=== PATIENT | male | born 1970 | race African-American/Black ===

== ENCOUNTER 2024-05-08 16:39 | Inpatient (IN) | payer OTHER ==
[~2024-05-08] VITALS: Ht 170.2 cm; Wt 103.4 kg
[~2024-05-08 16:39] MED LIST: ALBU0.084 INH; ALBU108A5 INH; AMLO1TAB23 PO; ASPI-325 PO; CEFP200T15 PO; CHOL50007 PO; FLUT500M2 INH; HYDR100T10 PO; LOSA-535 PO; METO-289 PO; SEMA1INJ2 SC; SPIR25TA8 PO; TIOT17SP INH
[2024-05-08] MEDS: IPRATROPIUM BROM 0.5 MG/2.5ML INH SOL NEB ONE ×2 (16:59)
[2024-05-08] MEDS: ALBUTEROL SULF 2.5 MG/0.5ML(0.5%) NEB SOLN NEB ONE ×2 (16:59)
[2024-05-08] MEDS: methylPREDNISolone SOD SUCC 125 MG/2 ML VL IV ONE ×2 (16:59→17:00)
[2024-05-08] MEDS: FUROSEMIDE 100 MG/10ML VIAL IV ONE ×2 (16:59)
[2024-05-08] MEDS: NITROGLYCERIN 0.4 MG SL TAB SL ONE (17:02)
--- NOTE | 2024-05-08 17:12 | DVH ---
CHEST RADIOGRAPH Indication: resp distress Technique: Single frontal view of the chest was obtained Comparison: None FINDINGS: Lines and Tubes: None Lungs: Bibasilar airspace disease Pleura: No effusion. No pneumothorax. Cardiomediastinal contours: Cardiomegaly Bones: No acute osseous abnormality. IMPRESSION: 1. Findings may be secondary to pneumonia or congestive failure HS:Y
--- NOTE | 2024-05-08 17:18 | ED.PDOC ---
SOB-HPI HPI Comments HPI: 54y M who presents to the ED via EMS for chief complaint of shortness of breath. - Per EMS, pt was [place] and called EMS after getting short of breath - EMS states on arrival, pt was already on 5 L via nc upon arrival and and noted to be in respiratory distress - pt vitals were checked and pt was noted to have 02 sat of 78% and placed on CPAP with duo- neb treatment prior to arrival to the ED - pt in the ED, now at 88% on CPAP with noted BP of 179/117, temp of 99.0F, heart rate of 117 and RR of 26 -pt noted to be in respiratory distress and noted to be speaking in 1 word sentences when answering questions - pt has noted history of CHF but is currently not on Lasix and states he is currently on antibiotics for an recent pneumonia infection. Patient was admitted and discharged recently from the hospital in [facility] for pneumonia COPD exacerbation. Is a question of whether his oxygen machine is actually functional. Patient denies any chest pain. Past Medical History: COPD, CHF, HTN, DM, Past Surgical History: denies medications: norco allergies: nkda Social History: denies tobacco use, denies ETOH use, denies drug use Vale: Patient was recently released from [facility] for COPD exacerbation and pneumonia. He was prescribed oral antibiotics. Patient states he has been compliant with his medications. He is not on any diuretics. Patient has history of CHF however. Denies any use of drugs. Denies any allergies. HPI: Poor Historian. REVIEW OF SYSTEMS: CONSTITUTIONAL: Denies acute: fever, diaphoresis, chills, HEAD: Denies acute: headache, photophobia Eyes: Denies acute: Double vision, vision loss, eye pain, eye discharge. EARS: Denies acute: tinnitus, hearing loss, ear discharge, ear pain, THROAT: Denies acute: sore throat, swelling, difficulty swallowing , pain with swallowing, change in voice. NECK: Denies acute: neck pain, neck swelling, stiff neck. HEART: Denies acute : chest pain, palpitations, LUNGS: Denies acute: wheezing, cough, hemoptysis ABDOMEN: Denies acute: abdominal pain, Nausea, Vomiting, diarrhea, melena , hematemesis, hematochezia SKIN: Denies acute: rash, redness, lesions, itchiness. EXTREMITIES: Denies acute: calf pain, numbness, tingling, weakness, denies pain in extremity. Denies acute: Low back pain. Neuro: Denies acute: focal neurological deficit, motor or sensory focal neurological deficit, tremors, seizure like activity, confusion, dizziness, change in mental status, loss of bowel or bladder function, cauda equina like symptoms. : Denies acute: dysuria, hematuria, flank pain, increase in urinary frequency. PSYCH: Denies acute: hallucination, suicidal ideation, homicidal ideation. PHYSICAL EXAM: General: Ycio-sv-bearynlx acute distress, awake and alert. Head: normocephalic, atraumatic. Neck: supple, trachea is midline, no swelling. Throat: Normal phonation. Eyes:, no erythema, no purulent discharge, no proptosis, no icterus. Heart: regular tachy, no significant murmur appreciated. Lungs: Gece-ft-obkcgyqk apparent respiratory distress, Able to speak in full sentences. No wheezing, no rhonchi, no crackles. No stridors Clear to auscultation bilaterally. Abdomen: non tender to palpation, non distended, soft, no guarding, no rebound, + bowel sounds. Neuro: Awake, Alert, oriented to name, self, situation, follows commands GCS=15. Speech is normal. Skin: no petechia, no purpura, no cyanosis, non-pale, not jaundice. Lower extremities: --2/4 b/l- Pitting edema no deformity, no focal swelling, no calf TTP. Makes eye contact. moves all four extremities. Face: no apparent facial droop. ED COURSE: Time Seen by MD: 17:15 Reviewed notes: Nurses Notes, Dry Folder Cloth Notes, Medications, Allergies Information Source: Patient ( ), Emergency Med Personnel Mode of Arrival: EMS Was a procedure done? Was a procedure done?: No Differential Dx Differential Diagnosis: Other (DDx include ACS, unstable angina, anxiety, PE, pneumothroax, neoplasm, cardiac ischemia, COPD, asthma, CHF, pleural effusion, tobacco abuse, pneumonia, hypoxia, hypercapnia, anemia., infection/sepsis., pulmonary edema. Asthma, Cardiac tamponade, infection.) X-Ray, Labs, Meds, VS Vital Signs Date Time Temp Pulse Resp B/P (MAP) Pulse Ox O2 Delivery O2 Flow Rate FiO2 05/08/24 18:30 100 Bi-pap/CPAP 05/08/24 18:30 100 Bi-Pap+ 100 100 05/08/24 18:30 100 142/93 99 Facial BiPAP Mask 100 05/08/24 18:00 122 20 151/93 (112) 100 05/08/24 17:56 117 20 100 Bi-Pap+ 50 50 05/08/24 17:52 158/126 05/08/24 17:45 118 20 158/126 (137) 100 05/08/24 17:30 116 20 158/126 (137) 100 05/08/24 17:16 108 05/08/24 17:15 110 20 169/109 (129) 100 05/08/24 17:00 97.4 109 20 166/108 (127) 100 97.4 05/08/24 16:59 178/118 05/08/24 16:56 25 100 Bi-Pap+ 100 100 05/08/24 16:56 113 178/118 Nasal BiPAP Mask 100 05/08/24 16:54 99.0 117 26 179/117 (137) 83 99.0 Lab Test 05/08/24 18:23 05/08/24 18:22 05/08/24 17:50 05/08/24 17:06 Range/Units Troponin I High Sensitivity 118 *H 122 *H </=54 ng/L Urine Color Light-yellow Yellow Urine Clarity Clear Clear Urine pH 6.5 5.0-9.0 Urine Specific [place] 1.008 1.001-1.035 Urine Protein 2+ H Negative Urine Ketones Negative Negative Urine Blood Negative Negative /uL Urine Nitrite Negative Negative Urine Bilirubin Negative Negative Urine Urobilinogen Normal Negative mg/dL Urine Leukocyte Esterase Negative Negative /uL Urine RBC 1 0 - 3 /hpf Urine Microscopic WBC < 1 0-3 /HPF Urine Squamous Epithelial Cells None seen <5 /hpf Urine Bacteria None seen None Seen /hpf Urine Glucose Normal Normal mg/dL Urine Opiates Screen Neg NEGATIVE Urine Fentanyl Screen Neg NEGATIVE Urine Barbiturates Screen Neg NEGATIVE Urine Phencyclidine Screen Neg NEGATIVE Urine Amphetamines Screen Neg NEGATIVE Urine Benzodiazepines Screen Neg NEGATIVE Urine Cocaine Screen Neg NEGATIVE Urine Cannabinoids Screen Neg NEGATIVE Influenza Type A Antigen Negative Negative Influenza Type B Antigen Negative Negative SARS-CoV-2 Antigen (Rapid) Negative NEGATIVE White Blood Count 11.9 H 4.4-10.8 10^3/uL Red Blood Count 4.52 4.5-5.90 10^6/uL Hemoglobin 12.8 L 13.5-17.5 g/dL Hematocrit 38.3 L 41.0-53.0 % Mean Corpuscular Volume 84.8 80.0-100.0 fL Mean Corpuscular Hemoglobin 28.4 28.0-32.0 pg Mean Corpuscular Hemoglobin Concent 33.4 32.0-36.0 g/dL Red Cell Distribution Width 19.4 H 11.8-14.3 % Platelet Count 288 140-450 10^3/uL Mean Platelet Volume 6.9 6.9-10.8 fL Neutrophils (%) (Auto) 84.4 H 37.0-80.0 % Lymphocytes (%) (Auto) 5.8 L 10.0-50.0 % Monocytes (%) (Auto) 9.2 0.0-12.0 % Eosinophils (%) (Auto) 0.1 0.0-7.0 % Basophils (%) (Auto) 0.5 0.0-2.0 % Neutrophils # (Auto) 10.0 H 1.6-8.6 10 ^3/uL Lymphocytes # (Auto) 0.7 0.4-5.4 10 ^3/uL Monocytes # (Auto) 1.1 0-1.3 10 ^3/uL Eosinophils # (Auto) 0 0-0.8 10 ^3/uL Basophils # (Auto) 0.1 0-0.2 10 ^3/uL Nucleated Red Blood Cells 0.1 % Prothrombin Time 11.4 9.3-11.8 sec Prothrombin Time INR 1.08 0.9-1.15 Activated Partial Thromboplast Time 34.2 24.5-34.5 SEC D-Dimer, Quantitative 0.78 H 0.0-0.49 mg/L FEU Sodium Level 139 136-145 mmol/L Potassium Level 3.8 3.5-5.1 mmol/L Chloride Level 104 98-107 mmol/L Carbon Dioxide Level 25 20-31 mmol/L Anion Gap 10 5-15 Blood Urea Nitrogen 16 9-23 mg/dL Creatinine 1.43 H 0.700-1.30 mg/dL Glomerular Filtration Rate Calc 58 >90 mL/min BUN/Creatinine Ratio 11.2 10.0-20.0 Serum Glucose 99 74-106 mg/dL Calcium Level 9.3 8.7-10.4 mg/dL Magnesium Level 2.0 1.6-2.6 mg/dL Total Bilirubin 1.9 H 0.2-1.0 mg/dL Aspartate Amino Transferase (AST) 57 H 13-40 U/L Alanine Aminotransferase (ALT) 143 H 7-40 U/L Alkaline Phosphatase 81 46-116 U/L B-Type Natriuretic Peptide 1128.31 0-100 pg/mL Total Protein 7.1 5.7-8.2 g/dL Albumin 4.3 3.2-4.8 g/dL Test 05/08/24 16:56 05/08/24 16:51 Range/Units Lactic Acid Level 0.8 0.4-2.0 mmol/L POC Glucose 108 H 70-106 mg/dl Current Medications Medications (Trade) Dose Ordered Sig/Inga Route Start Time Stop Time Status Last Admin Methylprednisolone Sodium Succinate (Solu Medrol) 125 mg ONCE ONCE IV 05/08/24 16:45 05/08/24 16:46 DC 05/08/24 16:59 Furosemide (Lasix Injection) 60 mg ONCE ONCE IV 05/08/24 16:45 05/08/24 16:46 DC 05/08/24 16:59 Albuterol (Ventolin Medneb) 2.5 mg ONCE ONCE NEB 05/08/24 16:45 05/08/24 16:47 DC 05/08/24 16:59 Ipratropium [place] (Atrovent Medneb) 1 mg ONCE ONCE NEB 05/08/24 16:45 05/08/24 16:47 DC 05/08/24 16:59 Nitroglycerin (Ntrostat Sublingual) 0.4 mg ONCE ONCE SL 05/08/24 17:00 05/08/24 17:01 DC 05/08/24 17:52 Levofloxacin/ Dextrose 100 ml @ 100 mls/hr ONCE ONCE IV 05/08/24 18:30 05/08/24 19:29 DC 05/08/24 18:[address] [address] Ph: [phone] DIAGNOSTIC IMAGING Diagnostic Imaging Report : [id number] Signed PATIENT: GERMAIN GARCIA ACCT: [id number] UNIT: [id number] : 1970 LOC: ER ROOM / BED: / AGE / SEX: 54 / M ADM STATUS: REG ER SERVICE 1644 ORDERING PHYSICIAN: MAGGIE HENDERSON DO PROCEDURE(s): CXRP - CHEST PORTABLE REASON: resp distress ORDER NUMBER(s): [id number], ACCESSION NUMBER(s): [id number] CHEST RADIOGRAPH Indication: resp distress Technique: Single frontal view of the chest was obtained Comparison: None FINDINGS: Lines and Tubes: None Lungs: Bibasilar airspace disease Pleura: No effusion. No pneumothorax. Cardiomediastinal contours: Cardiomegaly Bones: No acute osseous abnormality. IMPRESSION: 1. Findings may be secondary to pneumonia or congestive failure HS:Y ATED BY: MONICO ZHAO Jr., DO DICTATED DATE/TIME: 05/08/241709 SIGNED BY: MONICO ZHAO Jr., SIGNED DATE/TIME: 05/08/241709 CC: Time of 1ST Reevaluation: 22:30 Reevaluation 1ST: Improved Time of 2ND Reevaluation: 23:04 Reevaluation 2ND: Improved Patient Education/Counseling: Diagnosis, Treatment Family Education/Counseling: No Family Present Comments Patient presented with the above HPI.----acute respiratory distress--workup was initiated. patient was found with the above mentioned diagnosis. the following medications were ordered: please refer to order lists of meds and tests obtained by myself Dr. Henderson. Sepsis protocol was initiated. Given patient's history of CHF and presentation of suspected fluid overload, fluid resuscitation was conservative. Patient ED course and VS have been stabilized. Patient has been reassessed in the ED and remained in a stable condition. Pertinent incidental findings were discussed with the patient and/or family. Patient/family voices understanding and is agreeable with plan. Patient has been observed in the ED adequate length of time to insure improvement/stability. Escalation of care considered: Consideration of escalation to observation or admission Patient was ADMITTED to the medicine team for further evaluation and treatment of their presentation. All the reports of any imaging studies that were ordered by myself were reviewed by myself. Patient was evaluated immediately upon arrival. Patient was placed on a BiPAP. Patient was given the above medications mentioned under my name. We suspected possible pulmonary edema, nitroglycerin sublingually was given which helped his blood pressure but patient continued to be tachycardic. There was no reason to start the nitroglycerin drip. Patient was given Lopressor one dose to help with the his heart rate. Patient denies any history of atrial fibrillation. Use [facility] name of patient whenever attending physician patient with the sphincter was digit. Aspirin was ordered by the admitting team. Departure 1 Departure Time of Disposition: 17:25 Impression: Primary Impression: Acute respiratory distress Additional Impressions: CHF (congestive heart failure) Pulmonary edema Pneumonia Elevated troponin Disposition: ADMITTED INPATIENT Admit to: [facility] Condition: Guarded Critical Care Note Critical Care Time?: Yes (1 hr-critical care time only) Heart Score Heart Score: Heart Score Response (Comments) Value History Moderate Suspicious 1 EKG Repolarization Disturb 1 Age 45-64 1 Risk Factors >3 or Hx ASHD 2 Troponin >3 x's Normal limit 2 Total 7 I personally scribed for MAGGIE HENDERSON DO ([email or web address]) on 05/08/24 at 17:18. Electronically submitted by Loius Strong ([email or web address]). I personally scribed for MAGGIE HENDERSON DO ([email or web address]) on 05/08/24 at 17:28. Electronically submitted by Louis Strong ([email or web address]). I personally scribed for MAGGIE HENDERSON DO ([email or web address]) on 05/08/24 at 22:30. Electronically submitted by Louis Strong ([email or web address]). MAGGIE HENDERSON DO May 08, 2024 17:18
[2024-05-08 17:23] LABS: Basophils # (auto) 0.1 10 ^3/uL (0-0.2); Basophils % (auto) 0.5 % (0.0-2.0); Eosinophils # (auto) 0 10 ^3/uL (0-0.8); Eosinophils % (auto) 0.1 % (0.0-7.0); Hematocrit 38.3 % (41.0-53.0); Hemoglobin 12.8 g/dL (13.5-17.5); Lymphocytes # (auto) 0.7 10 ^3/uL (0.4-5.4); Lymphocytes % (auto) 5.8 % (10.0-50.0); Mean Corpuscular Hemoglobin 28.4 pg (28.0-32.0); Mean Corpuscular Hgb Conc. 33.4 g/dL (32.0-36.0); Mean Corpuscular Volume 84.8 fL (80.0-100.0); Monocytes # (auto) 1.1 10 ^3/uL (0-1.3); Monocytes % (auto) 9.2 % (0.0-12.0); Neutrophils % (auto) 84.4 % (37.0-80.0); Nucleated Red Blood Cells % 0.1 %; Platelet Count (auto) 288 10^3/uL (140-450); Red Blood Cells 4.52 10^6/uL (4.5-5.90); Red Cell Distribution Width 19.4 % (11.8-14.3); White Blood Cell 11.9 10^3/uL (4.4-10.8)
[2024-05-08 17:36] LABS: Albumin 4.3 g/dL (3.2-4.8); Alkaline Phosphatase 81 U/L (46-116); Anion Gap 10 (5-15); BUN/Creatinine Ratio 11.2 (10.0-20.0); Blood Urea Nitrogen 16 mg/dL (9-23); Calcium 9.3 mg/dL (8.7-10.4); Carbon Dioxide 25 mmol/L (20-31); Chloride 104 mmol/L (98-107); Glucose 99 mg/dL (74-106); Potassium 3.8 mmol/L (3.5-5.1); Sodium 139 mmol/L (136-145); Total Protein 7.1 g/dL (5.7-8.2)
[2024-05-08 17:37] LABS: INR 1.08 (0.9-1.15); Partial Thromboplastin Time 34.2 SEC (24.5-34.5); Prothrombin Time 11.4 sec (9.3-11.8)
[2024-05-08 17:40] LABS: Alanine Aminotransferase 143 U/L (7-40); Aspartate Aminotransferase 57 U/L (13-40); Bilirubin, Total 1.9 mg/dL (0.2-1.0)
[2024-05-08 17:56] VITALS: PULSE 117; RESP 20; O2SAT 100
[2024-05-08 18:30] VITALS: BP 142/93; PULSE 100; O2SAT 100; O2SAT 99
[2024-05-08] MEDS: NITROGLYCERIN 50MG/250ML 250 ML IV ONE (18:41)
[2024-05-08] MEDS: levoFLOXacin 500MG 100 ML IV ONE (18:43)
[2024-05-08] MEDS ORDERED: NITROGLYCERIN 0.4 MG SL TAB SL PRN (18:45)
[2024-05-08] MEDS ORDERED: ACETAMINOPHEN 325 MG TAB PO PRN (18:45)
[2024-05-08] MEDS: METOPROLOL TARTRATE 1MG/1ML-5ML VIAL IV ONE (18:47)
[2024-05-08 19:05] LABS: Urine Bacteria None Seen /hpf (None Seen)
[2024-05-08] MEDS: LABETALOL HCL 20 MG/4 ML VL IV ONE (19:09)
[2024-05-08 19:17] LABS: Urine Blood Negative /uL (Negative); Urine Clarity Clear (Clear); Urine Color Light-Yellow (Yellow); Urine Protein, UAD 2+ (Negative); Urine Specific Gravity 1.008 (1.001-1.035); Urine Squamous Epithelial Cell None Seen /hpf (<5); Urine Urobilinogen Normal (Negative); Urine WBC < 1 /HPF (0-3); Urine pH 6.5 (5.0-9.0)
[2024-05-08 19:45] LABS: Base Excess -2.1 mmol/L (-2.0-3.0)
[2024-05-08 19:48] LABS: Opiate Scree,Urine Neg (NEGATIVE)
[2024-05-08 19:49] LABS: Amphetamine Screen, Urine Neg (NEGATIVE); Barbiturate Scree,Urine Neg (NEGATIVE); Benzodiazephine Screen, Urine Neg (NEGATIVE); Cannabinoid Screen, Urine Neg (NEGATIVE); Cocaine Screen, Urine Neg (NEGATIVE); Phencyclidine Screen, Urine Neg (NEGATIVE)
[2024-05-08 20:00] VITALS: BP 148/95; PULSE 102; O2SAT 98
[2024-05-08] MEDS: ONDANSETRON HCL 4 MG/2 ML VIAL IV PRN (20:27)
[2024-05-08] MEDS: MORPHINE SULFATE INJ 2 MG/ml SYRG IV PRN (20:28)
[2024-05-08 21:00] VITALS: BP 135/91; PULSE 93; RESP 15; TEMP 98.2; O2SAT 97
--- NOTE | 2024-05-08 21:58 | DVHHP2 ---
History of Present Illness Reason for Visit: SHORTNESS FOR BREATH History of Present Illness 54-YEAR-OLD MALE WITH A HISTORY OF CONGESTIVE HEART FAILURE PRESENTS FOR EVALUATION OF SHORTNESS FOR BREATH. PATIENT REPORTS CURRENTLY NOT TAKING ANY MEDICATIONS FOR CONGESTIVE HEART FAILURE. HE PRESENTS WITH A TWO DAY HISTORY OF WORSENING SHORTNESS FOR BREATH WITH MILD EXERTION. STATES HAVING A NONPRODUCTIVE COUGH. REPORTS CHEST PRESSURE. NO FEVER OR CHILLS. NO GI SYMPTOMS. Past Medical History HYPERTENSION, CHF, DIABETES MELLITUS, COPD Past Surgical History DENIES Family History NONCONTRIBUTORY Smoke: No ALCOHOL: none Drugs: None Review of Systems Review of Systems REVIEW OF SYSTEMS ARE CURRENTLY NEGATIVE OTHERWISE ADDRESSED IN HPI. Allergies: Coded Allergies: Penicillins (Verified Allergy, Unknown, 05/08/24) Medications Current Medications Medications Dose Ordered Sig/Inga Route Start Time Stop Time Status Last Admin Dose Admin Carvedilol 6.25 mg Q12HR PO 05/08/24 22:00 Lisinopril 10 mg DAILY PO 05/09/24 10:00 Hydralazine HCl 10 mg Q6HP PRN IV 05/08/24 18:45 Furosemide 20 mg BIDD IV 05/09/24 06:00 Aspirin 162 mg DAILY PO 05/09/24 10:00 Atorvastatin Calcium 10 mg HS PO 05/08/24 22:00 Levofloxacin/ Dextrose 100 ml @ 100 mls/hr DAILY IV 05/09/24 10:00 Albuterol 2.5 mg Q6HPRN PRN NEB 05/08/24 18:45 Ondansetron HCl 4 mg Q4HP PRN IV 05/08/24 18:45 05/08/24 20:27 4 MG Enoxaparin Sodium 40 mg DAILY SC 05/09/24 10:00 Acetaminophen 650 mg Q6HP PRN PO 05/08/24 18:45 Nitroglycerin 0.4 mg Q5MINP PRN SL 05/08/24 18:45 Morphine Sulfate 2 mg Q30M PRN IV 05/08/24 18:45 05/08/24 20:28 2 MG Exam Vital Signs Vital Signs Date Time Temp Pulse Resp B/P (MAP) Pulse Ox O2 Delivery O2 Flow Rate FiO2 05/08/24 20:58 97 20 130/91 05/08/24 20:00 98 Facial BiPAP Mask 35 05/08/24 17:00 97.4 97.4 Exam GEN: 54-YEAR-OLD MALE IN MILD DISTRESS SKIN: WARM, DRY, NORMAL COLOR AND TEXTURE, NO RASH. HEENT: NORMOCEPHALIC ATRAUMATIC, MUCOUS MEMBRANES MOIST AND PINK. NECK: CERVICAL AND SUPRACLAVICULAR NODES NORMAL WITHOUT ENLARGEMENT, TRACHEA IS MIDLINE, THYROID GLAND IS NORMAL WITHOUT MASSES. PULMONARY: DIMINISHED BREATH SOUNDS CARDIAC: REGULAR RATE AND RHYTHM. NO MURMUR ABDOMEN: SOFT, NONTENDER, NONDISTENDED, BOWEL SOUNDS PRESENT ALL 4 QUADRANTS, NO GUARDING, NO RIGIDITY, NO ORGANOMEGALY. EXTREMITIES: NO CYANOSIS, CLUBBING, NO EDEMA NEURO: CRANIAL NERVES II THROUGH XII GROSSLY INTACT, NORMAL AFFECT AND SPEECH, NO FOCAL MOTOR DEFICITS. Labs/Xrays ORDERING PHYSICIAN: MAGGIE HENDERSON DO PROCEDURE(s): CXRP - CHEST PORTABLE REASON: resp distress ORDER NUMBER(s): [id number], ACCESSION NUMBER(s): [id number] CHEST RADIOGRAPH Indication: resp distress Technique: Single frontal view of the chest was obtained Comparison: None FINDINGS: Lines and Tubes: None Lungs: Bibasilar airspace disease Pleura: No effusion. No pneumothorax. Cardiomediastinal contours: Cardiomegaly Bones: No acute osseous abnormality. IMPRESSION: 1. Findings may be secondary to pneumonia or congestive failure HS:Y Labs Test 05/08/24 20:07 05/08/24 19:35 05/08/24 18:22 05/08/24 17:50 Range/Units Troponin I High Sensitivity 104 *H </=54 ng/L Blood Gas Specimen Type Arterial Blood Gas Sample Site Right radial Blood Gas Patient Temperature 37.0 Arterial Blood Date Drawn [id number] Arterial Blood pH 7.413 7.350-7.450 Arterial Blood Partial Pressure CO2 35.1 35.0-48.0 mmHg Arterial Blood Partial Pressure O2 380.2 *H 83.0-108.0 mmHg Arterial Blood HCO3 21.9 21.0-28.0 mmol/L Arterial Blood Oxygen Saturation 99.9 H 94.0-98.0 % Arterial Blood Base Excess -2.1 L -2.0-3.0 mmol/L Arterial Blood Oxyhemoglobin 98.4 H 94.0-98.0 % Arterial Blood Carboxyhemoglobin 0.8 0.5-1.5 % Arterial Blood Methemoglobin 0.7 0.0-1.5 % Phu Test Modified Blood Gas Total Hemoglobin 12.90 L 13.5-17.5 g/dL Blood Gas Set Respiration Rate 12.0 Blood Gas Modality Mask - bipap Blood Gas Spontaneous Rate 15 FiO2 % 100.0 Blood Gas Spontaneous Tidal Volume 614 Blood Gas EPAP 5 Blood Gas IPAP 12 Bl Gas Inspiratory/Expiratory Ratio 1:2 Blood Gas Critical Value Read Back Yes Blood Gas Notified Whom Do alyssaJuancarlos cristiano Blood Gas Notified Time [id number] Blood Gas Notified By Rt, molly garvin Urine Color Light-yellow Yellow Urine Clarity Clear Clear Urine pH 6.5 5.0-9.0 Urine Specific [place] 1.008 1.001-1.035 Urine Protein 2+ H Negative Urine Ketones Negative Negative Urine Blood Negative Negative /uL Urine Nitrite Negative Negative Urine Bilirubin Negative Negative Urine Urobilinogen Normal Negative mg/dL Urine Leukocyte Esterase Negative Negative /uL Urine RBC 1 0 - 3 /hpf Urine Microscopic WBC < 1 0-3 /HPF Urine Squamous Epithelial Cells None seen <5 /hpf Urine Bacteria None seen None Seen /hpf Urine Glucose Normal Normal mg/dL Urine Opiates Screen Neg NEGATIVE Urine Fentanyl Screen Neg NEGATIVE Urine Barbiturates Screen Neg NEGATIVE Urine Phencyclidine Screen Neg NEGATIVE Urine Amphetamines Screen Neg NEGATIVE Urine Benzodiazepines Screen Neg NEGATIVE Urine Cocaine Screen Neg NEGATIVE Urine Cannabinoids Screen Neg NEGATIVE Test 05/08/24 17:06 05/08/24 16:56 05/08/24 16:51 Range/Units White Blood Count 11.9 H 4.4-10.8 10^3/uL Red Blood Count 4.52 4.5-5.90 10^6/uL Hemoglobin 12.8 L 13.5-17.5 g/dL Hematocrit 38.3 L 41.0-53.0 % Mean Corpuscular Volume 84.8 80.0-100.0 fL Mean Corpuscular Hemoglobin 28.4 28.0-32.0 pg Mean Corpuscular Hemoglobin Concent 33.4 32.0-36.0 g/dL Red Cell Distribution Width 19.4 H 11.8-14.3 % Platelet Count 288 140-450 10^3/uL Mean Platelet Volume 6.9 6.9-10.8 fL Neutrophils (%) (Auto) 84.4 H 37.0-80.0 % Lymphocytes (%) (Auto) 5.8 L 10.0-50.0 % Monocytes (%) (Auto) 9.2 0.0-12.0 % Eosinophils (%) (Auto) 0.1 0.0-7.0 % Basophils (%) (Auto) 0.5 0.0-2.0 % Neutrophils # (Auto) 10.0 H 1.6-8.6 10 ^3/uL Lymphocytes # (Auto) 0.7 0.4-5.4 10 ^3/uL Monocytes # (Auto) 1.1 0-1.3 10 ^3/uL Eosinophils # (Auto) 0 0-0.8 10 ^3/uL Basophils # (Auto) 0.1 0-0.2 10 ^3/uL Nucleated Red Blood Cells 0.1 % Prothrombin Time 11.4 9.3-11.8 sec Prothrombin Time INR 1.08 0.9-1.15 Activated Partial Thromboplast Time 34.2 24.5-34.5 SEC D-Dimer, Quantitative 0.78 H 0.0-0.49 mg/L FEU Sodium Level 139 136-145 mmol/L Potassium Level 3.8 3.5-5.1 mmol/L Chloride Level 104 98-107 mmol/L Carbon Dioxide Level 25 20-31 mmol/L Anion Gap 10 5-15 Blood Urea Nitrogen 16 9-23 mg/dL Creatinine 1.43 H 0.700-1.30 mg/dL Glomerular Filtration Rate Calc 58 >90 mL/min BUN/Creatinine Ratio 11.2 10.0-20.0 Serum Glucose 99 74-106 mg/dL Calcium Level 9.3 8.7-10.4 mg/dL Magnesium Level 2.0 1.6-2.6 mg/dL Total Bilirubin 1.9 H 0.2-1.0 mg/dL Aspartate Amino Transferase (AST) 57 H 13-40 U/L Alanine Aminotransferase (ALT) 143 H 7-40 U/L Alkaline Phosphatase 81 46-116 U/L B-Type Natriuretic Peptide 1128.31 0-100 pg/mL Total Protein 7.1 5.7-8.2 g/dL Albumin 4.3 3.2-4.8 g/dL Lactic Acid Level 0.8 0.4-2.0 mmol/L POC Glucose 108 H 70-106 mg/dl Assessment/Plan Assessment/Plan ASSESSMENT ACUTE ON CHRONIC RESPIRATORY FAILURE ACUTE ON CHRONIC CONGESTIVE HEART FAILURE ACCELERATED HYPERTENSION QUESTIONABLE PNEUMONIA TRANSAMINITIS ELEVATED TROPONIN, POSSIBLE DEMAND ISCHEMIA PLAN ADMIT THE PATIENT TO TELEMETRY TO THE HOSPITALIST IV LASIX RESUME HOME MEDICATIONS CARDIOLOGY CONSULTATION ECHOCARDIOGRAM PENDING CONTINUE TREATMENT PER ORDERS. Plan discussed with: Patient My Orders Orders - SAYRA LI AGACNP Procedure Category Date Status Time Carvedilol Tablet PHA 05/08/24 In Process (Coreg Tablet) 22:00 Lisinopril Tablet PHA 05/09/24 In Process (Zestril Tablet) 10:00 Hydralazine Injection PHA 05/08/24 In Process (Apresoline Inject 18:45 Furosemide Injection PHA 05/09/24 In Process (Lasix Injection) 06:00 Aspirin Tablet PHA 05/09/24 In Process 10:00 Atorvastatin (Lipitor) PHA 05/08/24 In Process 22:00 * Cardiology Consult CONS 05/08/24 Transmitted 18:38 Levofloxacin 500mg PHA 05/09/24 In Process (Levaquin 500mg/ 100m 10:00 Albuterol Medneb PHA 05/08/24 In Process (Ventolin Medneb) 18:45 Admit ADMIT 05/08/24 Transmitted 18:38 Ondansetron Hcl PHA 05/08/24 In Process (Zofran) 18:45 Enoxaparin Sodium PHA 05/09/24 In Process (Lovenox) 10:00 Complete Blood Count LAB 05/09/24 Verified 04:00 Comprehensive LAB 05/09/24 Verified Metabolic Panel 04:00 Cardiac DIET 05/09/24 Transmitted Diet-2gna,Lofat,Lochol Breakfast Echo 2d Mode Cardiac US 05/08/24 Logged DOP 18:38 Condition: Fair JESUS 05/08/24 In Process 18:38 Acetaminophen Tablet PHA 05/08/24 In Process (Tylenol Tablet) 18:45 Bedrest With Bathroom JESUS 05/08/24 In Process Privileg 18:38 Nitroglycerin PHA 05/08/24 In Process Sublingual (Ntrostat 18:45 Morphine Sulfate PHA 05/08/24 In Process Injection 18:45 Stat Ekg For Chest JESUS 05/08/24 In Process Pain 18:38 Notify Of Changes JESUS 05/08/24 In Process From Base 18:38 Customer Training Specialist For JESUS 05/08/24 In Process 24 Hours 18:38 Emergency Dysrhythmia JESUS 05/08/24 In Process Protocol 18:38 Rhythm Strips Once [facility] 05/08/24 In Process Every Shift 18:38 Oxygen By Nasal RT 05/08/24 Transmitted Cannula 18:38 Covid19 Antigen Norma LAB 05/08/24 In Process 17:50 Rapid Influenza A&B LAB 05/08/24 In Process 17:50 Date of Service: May 08, 2024 Billing Provider: SAYRA LI Common Visit Codes: [id number] INP/OBS CARE (HIGH) SAYRA LI May 08, 2024 21:58
[2024-05-08 22:23] LABS: COVID19 ANTIGEN SOFIA FIA NEGATIVE (NEGATIVE)
[2024-05-08 22:24] LABS: Rapid Influenza A Negative (Negative); Rapid Influenza B Negative (Negative)
[2024-05-08] MEDS: CARVEDILOL 3.125 MG TAB PO SCH (23:13)
[2024-05-08] MEDS: ATORVASTATIN 20 MG TAB PO SCH (23:14)
[2024-05-08 23:18] LABS: Triglycerides 78 mg/dL (< 150)
[2024-05-08 23:20] VITALS: BP 135/89; PULSE 92; O2SAT 97
[2024-05-08 23:20] LABS: Cholesterol 198 mg/dL (< 200); HDL Cholesterol 55 mg/dL (40-59)
[2024-05-08 23:26] LABS: LDL Cholesterol 112 mg/dL (< 100)
[2024-05-08] MEDS: ALBUTEROL SULF 2.5 MG/0.5ML(0.5%) NEB SOLN NEB PRN (23:31)
[2024-05-09] VITALS (16 sets, daily range): BP systolic 126–139; BP diastolic 86–91; PULSE 82–94; RESP 18–20; TEMP 96.7–98.1; O2SAT 94–99
[2024-05-09] MEDS: HYDROcodone-ACET 5/325MG TAB PO ONE (01:53)
[2024-05-09] MEDS: FUROSEMIDE 20 MG/2 ML VIAL IV SCH (05:34)
[2024-05-09 08:19] LABS: Basophils # (auto) 0 10 ^3/uL (0-0.2); Basophils % (auto) 0.1 % (0.0-2.0); Eosinophils # (auto) 0 10 ^3/uL (0-0.8); Hematocrit 36.3 % (41.0-53.0); Hemoglobin 12.6 g/dL (13.5-17.5); Lymphocytes # (auto) 0.7 10 ^3/uL (0.4-5.4); Lymphocytes % (auto) 6.4 % (10.0-50.0); Mean Corpuscular Hemoglobin 29.4 pg (28.0-32.0); Mean Corpuscular Hgb Conc. 34.6 g/dL (32.0-36.0); Mean Corpuscular Volume 84.9 fL (80.0-100.0); Monocytes # (auto) 0.3 10 ^3/uL (0-1.3); Monocytes % (auto) 2.6 % (0.0-12.0); Neutrophils # (auto) 9.4 10 ^3/uL (1.6-8.6); Neutrophils % (auto) 90.9 % (37.0-80.0); Nucleated Red Blood Cells % 0.1 %; Platelet Count (auto) 278 10^3/uL (140-450); Red Blood Cells 4.28 10^6/uL (4.5-5.90); Red Cell Distribution Width 18.9 % (11.8-14.3); White Blood Cell 10.4 10^3/uL (4.4-10.8)
[2024-05-09 08:37] LABS: Alanine Aminotransferase 113 U/L (7-40); Albumin 4.3 g/dL (3.2-4.8); Alkaline Phosphatase 70 U/L (46-116); Anion Gap 8 (5-15); Aspartate Aminotransferase 29 U/L (13-40); BUN/Creatinine Ratio 13.3 (10.0-20.0); Bilirubin, Total 1.2 mg/dL (0.2-1.0); Blood Urea Nitrogen 27 mg/dL (9-23); Calcium 9.2 mg/dL (8.7-10.4); Carbon Dioxide 27 mmol/L (20-31); Chloride 101 mmol/L (98-107); Glucose 141 mg/dL (74-106); Potassium 4.4 mmol/L (3.5-5.1); Sodium 136 mmol/L (136-145); Total Protein 7.4 g/dL (5.7-8.2)
[2024-05-09] MEDS: IOHEXOL 350 MG/ML 100ML IJ ONE (09:15)
[2024-05-09] MEDS: ASPirin 81 mg TAB PO SCH (09:35)
[2024-05-09] MEDS: LISINOPRIL 5 MG TAB PO SCH (09:37)
[2024-05-09] MEDS: ENOXAPARIN SOD 40 MG/0.4 ML SYRINGE SC SCH (09:38)
[2024-05-09] MEDS: levoFLOXacin 500MG 100 ML IV SCH (09:38)
--- NOTE | 2024-05-09 12:39 | DVHINCON2 ---
Date Seen: May 09, 2024 Referring Physician MANOLO Menjivar Reason for Consultation CHF History of Present Illness This 54-year-old male presents in the ED via EMS with a chief complaint of shortness of breath. The patient reports progressive shortness of breath associated with hypoxemia and sharp chest pain radiating to the back worse on inhalation and exertion for the past few days for which prompted the ER visit. In the emergency department the patient underwent a 12 lead ECG revealing sinus tachycardia, serial troponins in 100s, mildly elevated BNP. The patient states that he was recently hospitalized and diagnosed with congestive heart failure and was supposed to see his Cardiology Dr Mireles in [facility] for a follow- up but missed his appointment last week. The patient currently denies dizziness, diaphoresis, or chest pain but noticeable dyspnea on exertion, and orthopnea. Past medical history of hypertension, diabetes, COPD, tobacco use, marijuana use, and obesity. Past Medical History Stated in HPI Past Surgical History Denies Family History: Patient reports no known family medical history. Family History Reviewed, non-contributory to the management of this case. Social History Cigarette smoking 10 sticks per day Marijuana use Allergies: Coded Allergies: Penicillins (Verified Allergy, Unknown, 05/08/24) Home Meds Reported Medications Cholecalciferol (VITAMIN D3) 5,000 Unit Cap, PO 05/09/24 Losartan Potassium (Losartan Potassium) 100 Mg Tab, 1 TAB PO DAILY 05/09/24 Amlodipine Besylate (Amlodipine Besylate) 10 Mg Tab, 1 TAB PO DAILY 05/09/24 Semaglutide (Ozempic) 8 Mg/3 Ml Inj, 2 MG SC QWEEKLY 05/09/24 Metoprolol Succinate (Metoprolol Succinate Er) 50 Mg Tab, 1 TAB PO DAILY 05/09/24 Tiotropium [place] Monohydrate (Spiriva Respimat) 2.5 Mcg/Act Spr, 2 PUFF INH DAILY 05/09/24 Cefpodoxime Proxetil (Cefpodoxime Proxetil) 200 Mg Tab, 1 TAB PO BID 05/09/24 Aspirin (Aspirin Low Dose) 81 Mg Tab, 1 TAB PO DAILY 05/09/24 Hydralazine Hcl (Hydralazine Hcl) 100 Mg Tab, 1 TAB PO Q8H 05/09/24 Albuterol Sulfate (Albuterol Sulfate Hfa) 108 Mcg/Act Aer, INH 05/09/24 Current Medications Current Medications Medications (Trade) Dose Ordered Sig/Inga Route PRN Reason Start Time Stop Time Status Last Admin Carvedilol (Coreg Tablet) 6.25 mg Q12HR PO 05/08/24 22:00 05/09/24 09:38 Lisinopril (Zestril Tablet) 10 mg DAILY PO 05/09/24 10:00 05/09/24 09:37 Hydralazine HCl (Apresoline Injection) 10 mg Q6HP PRN IV SBP>150 05/08/24 18:45 Furosemide (Lasix Injection) 20 mg BIDD IV 05/09/24 06:00 05/09/24 05:34 Aspirin 162 mg DAILY PO 05/09/24 10:00 05/09/24 09:35 Atorvastatin Calcium (Lipitor) 10 mg HS PO 05/08/24 22:00 05/08/24 23:14 Levofloxacin/ Dextrose 100 ml @ 100 mls/hr DAILY IV 05/09/24 10:00 05/09/24 09:38 Albuterol (Ventolin Medneb) 2.5 mg Q6HPRN PRN NEB SHORTNESS OF BREATH 05/08/24 18:45 05/09/24 11:46 Ondansetron HCl (Zofran) 4 mg Q4HP PRN IV NAUSEA / VOMITING 05/08/24 18:45 05/08/24 20:27 Enoxaparin Sodium (Lovenox) 40 mg DAILY SC 05/09/24 10:00 05/09/24 09:38 Acetaminophen (Tylenol Tablet) 650 mg Q6HP PRN PO PAIN SCALE 1-3 OR TEMP>100.4 05/08/24 18:45 Nitroglycerin (Ntrostat Sublingual) 0.4 mg Q5MINP PRN SL FOR CHEST PAIN 05/08/24 18:45 Morphine Sulfate 2 mg Q30M PRN IV FOR CHEST PAIN 05/08/24 18:45 05/08/24 22:57 Review of Systems Constitutional: No symptom reported Ears, Nose, & Throat: No symptom reported Eyes: No symptom reported Neurological: No symptoms reported Pulmonary/Respiratory: Shortness of breath Cardiovascular: Dyspnea, chest pain Gastrointestinal: No symptom reported Genitourinary: No symptom reported Musculoskeletal: No symptom reported Skin: No symptom reported Psychiatric: No symptom reported Endocrine: No symptom reported Hemotologic/Lymphatic: No symptom reported Vital Signs Vital Signs Date Time Temp Pulse Resp B/P (MAP) Pulse Ox O2 Delivery O2 Flow Rate FiO2 05/09/24 10:00 94 Oxymizer 8 N/A 05/09/24 09:38 88 139/86 05/09/24 08:48 97.0 20 97.0 Physical Exam INITIAL VITAL SIGNS: Reviewed by me GENERAL: Alert and interactive. No acute distress. HEAD: Head is normocephalic and atraumatic. EYES: EOMI, PERRL. No scleral icterus. No conjunctival injection. ENT: Moist mucous membranes. NECK: Supple, No masses, Full range of motion. RESPIRATORY: Diminished lung sounds, O2 supplement CV: Regular rate and rhythm. Dyspnea on exertion, orthopnea. GI/: Active bowel sounds, soft, nondistended, nontender. INTEGUMENTARY: Warm and dry. No obvious rashes. NEUROLOGIC: Alert and oriented. Face is symmetric. Speech is normal. Moves all extremities equally. Labs/Diagnostic Data Labs Test 05/09/24 07:50 05/08/24 20:07 05/08/24 19:35 05/08/24 18:22 Range/Units White Blood Count 10.4 4.4-10.8 10^3/uL Red Blood Count 4.28 L 4.5-5.90 10^6/uL Hemoglobin 12.6 L 13.5-17.5 g/dL Hematocrit 36.3 L 41.0-53.0 % Mean Corpuscular Volume 84.9 80.0-100.0 fL Mean Corpuscular Hemoglobin 29.4 28.0-32.0 pg Mean Corpuscular Hemoglobin Concent 34.6 32.0-36.0 g/dL Red Cell Distribution Width 18.9 H 11.8-14.3 % Platelet Count 278 140-450 10^3/uL Mean Platelet Volume 7.3 6.9-10.8 fL Neutrophils (%) (Auto) 90.9 H 37.0-80.0 % Lymphocytes (%) (Auto) 6.4 L 10.0-50.0 % Monocytes (%) (Auto) 2.6 0.0-12.0 % Eosinophils (%) (Auto) 0.0 0.0-7.0 % Basophils (%) (Auto) 0.1 0.0-2.0 % Neutrophils # (Auto) 9.4 H 1.6-8.6 10 ^3/uL Lymphocytes # (Auto) 0.7 0.4-5.4 10 ^3/uL Monocytes # (Auto) 0.3 0-1.3 10 ^3/uL Eosinophils # (Auto) 0 0-0.8 10 ^3/uL Basophils # (Auto) 0 0-0.2 10 ^3/uL Nucleated Red Blood Cells 0.1 % Sodium Level 136 136-145 mmol/L Potassium Level 4.4 3.5-5.1 mmol/L Chloride Level 101 98-107 mmol/L Carbon Dioxide Level 27 20-31 mmol/L Anion Gap 8 5-15 Blood Urea Nitrogen 27 #H 9-23 mg/dL Creatinine 2.03 H 0.700-1.30 mg/dL Glomerular Filtration Rate Calc 38 >90 mL/min BUN/Creatinine Ratio 13.3 10.0-20.0 Serum Glucose 141 H 74-106 mg/dL Calcium Level 9.2 8.7-10.4 mg/dL Total Bilirubin 1.2 H 0.2-1.0 mg/dL Aspartate Amino Transferase (AST) 29 13-40 U/L Alanine Aminotransferase (ALT) 113 H 7-40 U/L Alkaline Phosphatase 70 46-116 U/L B-Type Natriuretic Peptide 871.89 0-100 pg/mL Total Protein 7.4 5.7-8.2 g/dL Albumin 4.3 3.2-4.8 g/dL Troponin I High Sensitivity 104 *H </=54 ng/L Triglycerides Level 78 < 150 mg/dL Cholesterol Level 198 < 200 mg/dL LDL Cholesterol 112 H < 100 mg/dL HDL Cholesterol 55 40-59 mg/dL Thyroid Stimulating Hormone (TSH) 0.20 L 0.55-4.78 uIU/mL Blood Gas Specimen Type Arterial Blood Gas Sample Site Right radial Blood Gas Patient Temperature 37.0 Arterial Blood Date Drawn [id number] Arterial Blood pH 7.413 7.350-7.450 Arterial Blood Partial Pressure CO2 35.1 35.0-48.0 mmHg Arterial Blood Partial Pressure O2 380.2 *H 83.0-108.0 mmHg Arterial Blood HCO3 21.9 21.0-28.0 mmol/L Arterial Blood Oxygen Saturation 99.9 H 94.0-98.0 % Arterial Blood Base Excess -2.1 L -2.0-3.0 mmol/L Arterial Blood Oxyhemoglobin 98.4 H 94.0-98.0 % Arterial Blood Carboxyhemoglobin 0.8 0.5-1.5 % Arterial Blood Methemoglobin 0.7 0.0-1.5 % Phu Test Modified Blood Gas Total Hemoglobin 12.90 L 13.5-17.5 g/dL Blood Gas Set Respiration Rate 12.0 Blood Gas Modality Mask - bipap Blood Gas Spontaneous Rate 15 FiO2 % 100.0 Blood Gas Spontaneous Tidal Volume 614 Blood Gas EPAP 5 Blood Gas IPAP 12 Bl Gas Inspiratory/Expiratory Ratio 1:2 Blood Gas Critical Value Read Back Yes Blood Gas Notified Whom amish Murray Blood Gas Notified Time [id number] Blood Gas Notified By Rt, molly garvin Urine Color Light-yellow Yellow Urine Clarity Clear Clear Urine pH 6.5 5.0-9.0 Urine Specific [place] 1.008 1.001-1.035 Urine Protein 2+ H Negative Urine Ketones Negative Negative Urine Blood Negative Negative /uL Urine Nitrite Negative Negative Urine Bilirubin Negative Negative Urine Urobilinogen Normal Negative mg/dL Urine Leukocyte Esterase Negative Negative /uL Urine RBC 1 0 - 3 /hpf Urine Microscopic WBC < 1 0-3 /HPF Urine Squamous Epithelial Cells None seen <5 /hpf Urine Bacteria None seen None Seen /hpf Urine Glucose Normal Normal mg/dL Urine Opiates Screen Neg NEGATIVE Urine Fentanyl Screen Neg NEGATIVE Urine Barbiturates Screen Neg NEGATIVE Urine Phencyclidine Screen Neg NEGATIVE Urine Amphetamines Screen Neg NEGATIVE Urine Benzodiazepines Screen Neg NEGATIVE Urine Cocaine Screen Neg NEGATIVE Urine Cannabinoids Screen Neg NEGATIVE Test 05/08/24 17:50 05/08/24 17:06 05/08/24 16:56 05/08/24 16:51 Range/Units Influenza Type A Antigen Negative Negative Influenza Type B Antigen Negative Negative SARS-CoV-2 Antigen (Rapid) Negative NEGATIVE Prothrombin Time 11.4 9.3-11.8 sec Prothrombin Time INR 1.08 0.9-1.15 Activated Partial Thromboplast Time 34.2 24.5-34.5 SEC D-Dimer, Quantitative 0.78 H 0.0-0.49 mg/L FEU Magnesium Level 2.0 1.6-2.6 mg/dL Lactic Acid Level 0.8 0.4-2.0 mmol/L POC Glucose 108 H 70-106 mg/dl PROCEDURE(s): CXRP - CHEST PORTABLE REASON: resp distress ORDER NUMBER(s): [id number], ACCESSION NUMBER(s): [id number] CHEST RADIOGRAPH Indication: resp distress Technique: Single frontal view of the chest was obtained Comparison: None FINDINGS: Lines and Tubes: None Lungs: Bibasilar airspace disease Pleura: No effusion. No pneumothorax. Cardiomediastinal contours: Cardiomegaly Bones: No acute osseous abnormality. IMPRESSION: 1. Findings may be secondary to pneumonia or congestive failure Assessment Acute decompensated heart failure, recently diagnosed Accelerated hypertension Acute on chronic respiratory failure with hypoxemia Elevated troponin likely secondary to above JUNIOR on CKD Possible pneumonia Tobacco and marijuana use Obesity Plan/Recommendation Plan/Recommendation (Dr. Hernandez ): - echocardiogram to evaluate cardiac function - continue with diuresis closely monitor kidney function - avoid GIOVANY and arbs given worsening kidney function - Continue to monitor blood - daily weight, strict intake and output - continue to monitor on telemetry - counseled on smoking and marijuana cessation This medical document was created using an electronic medical record system with voice recognition software and computerized dictation system. Although this document has been carefully reviewed, there might still be some phonetic and typographical errors. Occasional wrong-word or ``sound-alike substitutions may have occurred due to the inherent limitations of voice recognition software. These areas are purely typographical due to imperfections of the software programs and do not reflect any compromise in the patient's medical care. Please read the chart carefully and recognize, using context, where these substitutions have occurred. Plan discussed with: Patient Plan discussed with: Patient NYHA Physical activity limitations: Class2(Slight)fatigue,sob Date of Service: May 09, 2024 Billing Provider: DANIEL HERNANDEZ MD Cardiology Common Codes: CONSULT ONLY ASIA VICTORIA ACCOUNT ADVISOR May 09, 2024 12:39
--- NOTE | 2024-05-09 15:40 | DVHPN2 ---
Subjective 05/09 patient presenting after recent admission in another hospital in [facility]. He was treated extensively for pneumonia for 6 days. He was visiting his uncle up in [place] and while driving down and trying to feel gas and gas station he felt sudden chills and had sudden loss of urine and bowel bladder. No loss of consciousness no shakes tongue bite. He has heart failure but appears to be close to euvolemia/mildly hypervolemic. Given his chills he was likely has pneumonia recurrence. We will continue treatment with Lasix and IV antibiotics. Reviewed: H&P Changes from previous H/P or p: No Changes General: Per HPI Objective Vitals Vital Signs Date Time Temp Pulse Resp B/P (MAP) Pulse Ox O2 Delivery O2 Flow Rate FiO2 05/09/24 14:56 84 97 Facial BiPAP Mask 30 05/09/24 12:37 97.3 18 128/91 (103) 97.3 05/09/24 10:00 8 Intake/Output Intake and Output 05/09/24 07:00 Intake Total 100 ml Output Total 300 ml Balance -200 ml Intake Oral 100 ml Output Urine Total 300 ml # Voids 1 Exam GEN: Mild distress, he was on BiPAP. HEENT: NC/AT; MMM. CV: RRR, no m/r/g. LUNGS: Some faint rhonchi right middle lobe. Otherwise distant breath sounds. ABD: Soft, NT/ND, NBS, no masses or organomegaly. EXT: skin Warm, well perfused. no rashes. No clubbing, cyanosis, or edema. NEURO: Ambulating with no limitations. No focal deficits. Medications Current Medications Medications Dose Ordered Sig/Inga Route Start Time Stop Time Status Last Admin Dose Admin Carvedilol 6.25 mg Q12HR PO 05/08/24 22:00 05/09/24 09:38 6.25 MG Lisinopril 10 mg DAILY PO 05/09/24 10:00 05/09/24 09:37 10 MG Hydralazine HCl 10 mg Q6HP PRN IV 05/08/24 18:45 Furosemide 20 mg BIDD IV 05/09/24 06:00 05/09/24 05:34 20 MG Aspirin 162 mg DAILY PO 05/09/24 10:00 05/09/24 09:35 162 MG Atorvastatin Calcium 10 mg HS PO 05/08/24 22:00 05/08/24 23:14 10 MG Albuterol 2.5 mg Q6HPRN PRN NEB 05/08/24 18:45 05/09/24 11:46 2.5 MG Ondansetron HCl 4 mg Q4HP PRN IV 05/08/24 18:45 05/08/24 20:27 4 MG Enoxaparin Sodium 40 mg DAILY SC 05/09/24 10:00 05/09/24 09:38 40 MG Acetaminophen 650 mg Q6HP PRN PO 05/08/24 18:45 Nitroglycerin 0.4 mg Q5MINP PRN SL 05/08/24 18:45 Morphine Sulfate 2 mg Q30M PRN IV 05/08/24 18:45 05/08/24 22:57 2 MG Cefepime HCl 50 ml @ 12.5 mls/hr Q12HR IV 05/09/24 22:00 UNV Doxycycline Hyclate 100 ml @ 50 mls/hr Q12H IV 05/09/24 15:15 UNV Laboratory Results Laboratory Tests 05/09/24 07:50 Chemistry Test 05/08/24 17:06 05/09/24 07:50 Albumin 4.3 g/dL (3.2-4.8) 4.3 g/dL (3.2-4.8) Calcium Level 9.3 mg/dL (8.7-10.4) 9.2 mg/dL (8.7-10.4) Magnesium Level 2.0 mg/dL (1.6-2.6) Total Protein 7.1 g/dL (5.7-8.2) 7.4 g/dL (5.7-8.2) Coagulation Test 05/08/24 17:06 Prothrombin Time 11.4 sec (9.3-11.8) Prothrombin Time INR 1.08 (0.9-1.15) Activated Partial Thromboplast Time 34.2 SEC (24.5-34.5) D-Dimer, Quantitative 0.78 mg/L FEU (0.0-0.49) H Lipid panel Test 05/08/24 20:07 Cholesterol Level 198 mg/dL (< 200) HDL Cholesterol 55 mg/dL (40-59) Triglycerides Level 78 mg/dL (< 150) Cardiac Markers Test 05/08/24 17:06 05/09/24 07:50 B-Type Natriuretic Peptide 1128.31 pg/mL (0-100) 871.89 pg/mL (0-100) LFT Test 05/08/24 17:06 05/09/24 07:50 Alanine Aminotransferase (ALT) 143 U/L (7-40) H 113 U/L (7-40) H Alkaline Phosphatase 81 U/L (46-116) 70 U/L (46-116) Aspartate Amino Transferase (AST) 57 U/L (13-40) H 29 U/L (13-40) Total Bilirubin 1.9 mg/dL (0.2-1.0) H 1.2 mg/dL (0.2-1.0) H HgA1c, TSH Test 05/08/24 20:07 Thyroid Stimulating Hormone (TSH) 0.20 uIU/mL (0.55-4.78) L Urinalysis Test 05/08/24 18:22 Urine Color Light-yellow (Yellow) Urine Clarity Clear (Clear) Urine pH 6.5 (5.0-9.0) Urine Specific [place] 1.008 (1.001-1.035) Urine Protein 2+ (Negative) H Urine Ketones Negative (Negative) Urine Blood Negative /uL (Negative) Urine Nitrite Negative (Negative) Urine Bilirubin Negative (Negative) Urine Urobilinogen Normal mg/dL (Negative) Urine Leukocyte Esterase Negative /uL (Negative) Urine RBC 1 /hpf (0 - 3) Urine Microscopic WBC < 1 /HPF (0-3) Urine Squamous Epithelial Cells None seen /hpf (<5) Urine Bacteria None seen /hpf (None Seen) Urine Glucose Normal mg/dL (Normal) Blood Gas Results Test 05/08/24 19:35 Arterial Blood pH 7.413 (7.350-7.450) FiO2 % 100.0 Microbiology Microbiology Date/Time Source Procedure Growth Status 05/09/24 03:55 Nose MRSA Screen - Final Complete Labs and/or images reviewed: Labs reviewed by me, Image(s) reviewed by me Assessment/Plan Assessment/Plan 05/09 patient presenting after recent admission in another hospital in [facility]. He was treated extensively for pneumonia for 6 days. He was visiting his uncle [place] in [place] and while driving down and trying to feel gas and gas station he felt sudden chills and had sudden loss of urine and bowel bladder. No loss of consciousness no shakes tongue bite. He has heart failure but appears to be close to euvolemia/mildly hypervolemic. Given his chills he has likely has pneumonia recurrence. We will continue treatment with Lasix and IV antibiotics. Acute on chronic hypoxic respiratory failure due to below (chronic home oxygen 2 L) Acute complicated pneumonia , Gram-negative Gram-positive possible Acute on chronic? Diastolic heart failure exacerbation, possible Elevated troponin likely secondary to above JUNIOR on CKD Accelerated hypertension Tobacco and marijuana use Obesity continue treatment with Lasix and IV antibiotics (cefepime/doxycycline). - echocardiogram to evaluate cardiac function - continue with diuresis closely monitor kidney function - avoid GIOVANY and arbs given worsening kidney function - Continue to monitor blood - daily weight, strict intake and output - continue to monitor on telemetry - counseled on smoking and marijuana cessation Plan discussed with: Patient My Orders Orders - CARLOS HARTLEY MD Procedure Category Date Status Time Cefepime 1gm/ 50ml PHA 05/09/24 Logged (Maxipime 1gm/50ml) 22:00 Doxycycline PHA 05/09/24 Logged 100mg/100ml 15:15 Date of Service: May 09, 2024 Billing Provider: CARLOS HARTLEY MD Common Visit Codes: [id number] INP/OBS CARE(HIGH) CARLOS HARTLEY MD May 09, 2024 15:40
[2024-05-09] MEDS: DOXYCYCLINE 100MG/100ML 100 ML IV SCH (16:31)
[2024-05-09] MEDS: MORPHINE SULFATE INJ 2 MG/ml SYRG IV PRN (16:39)
--- NOTE | 2024-05-09 17:52 | DVHSR ---
APPROVED REPORT EXAM: Two-dimensional and M-mode echocardiogram with Doppler and color Doppler. Blood Pressure: 133/90 mmHg INDICATION EF RISK FACTORS Height: 5'7", Weight: 210 DIMENSIONS LVDd5.2 (3.8-5.7cm)LA (2D)4.9 (1.9-4.0cm)Aortic Root4.0 (2.0-3.7cm) LVDs4.0 (2.5-4.0cm)LA (MM) (1.9-4.0cm)Aortic Cusp Exc1.9 (1.5-2.0cm) EF (%) 40.0 (55-70%)Rt. Atrium4.4 (1.9-4.0cm)Asc. Aorta cm IVSd1.1 (0.7-1.1cm)RV (D) (1.8-2.4cm) PWd1.2 (0.7-1.1cm) Mitral Valve MitralMitral Stenosis E wave1.10m/sMV Mean GR.mmHg A wave0.46m/sMV Peak GR.mmHg E/A ratio2.42D MVAcm2 DECEL [id number] 1/2 Timems Aortic Valve Aortic ValveAortic Stenosis V10.62m/[place] Mean GR.3mmHg V21.15m/[place] Peak GR.5mmHg LVOT Diameter2.0 (1.8-2.4cm)Doppler AVA1.69cm2 Pulmonic Valve V20.78m/s Tricuspid Valve TR Velocity3.86m/s [id number] Conclusion SLIGHTLY DILATED LV GLOBAL LV HYPOKINESIS LV EF IS 40% AND IS REDUCED MODERATELT DILATED LEFT ATRIUM SLIGHTLY DILATED RV AND RA SEVERE PULMONARY HYPERTENSION RVSP IS 68 MM OF HG AND IS VERY HIGH ( SEVERE PULMONARY HYPERTENSION) GROSSLY NORMAL APPEARANCE OF VALVES NO EFFUSION SUGGESTION: NEED TO REFER FOR MITRAL VALVE CLIP
[2024-05-09] MEDS: HYDROcodone-ACET 10/325MG TAB PO PRN (20:14)
[2024-05-09] MEDS: CEFEPIME 1GM/ 50ML 50 ML IV SCH (21:28)
--- NOTE | 2024-05-09 23:38 | DVHINCON2 ---
Date Seen: May 09, 2024 Referring Physician MANOLO Menjivar Reason for Consultation CHF History of Present Illness This is a 54-year-old male with a past medical history of hypertension, diabetes, COPD, tobacco use, marijuana use, and obesity presents to the ED via EMS with a complaint of shortness of breath. Patient reports progressive shortness of breath associated with hypoxemia and sharp chest pain radiating to the back worse on inhalation and exertion for the past few days for which prompted the ED visit. In the emergency department the patient underwent a 12 lead ECG revealing sinus tachycardia, serial troponins in 100s, mildly elevated BNP. Chest x-ray showed findings may be secondary to pneumonia or congestive failure. Patient states that he was recently hospitalized at another facility and diagnosed with congestive heart failure and was supposed to see his Banking Pin Adjuster Dr Mireles in [facility] for a follow-up but missed his appointment last week. Patient currently denies dizziness, diaphoresis, or chest pain but noticeable dyspnea on exertion, and orthopnea. Patient was admitted to the hospital. I am asked to consult on this patient. Past Medical History Stated in HPI Past Surgical History Denies Family History: Patient reports no known family medical history. Allergies: Coded Allergies: Penicillins (Verified Allergy, Unknown, 05/08/24) Home Meds Reported Medications Cholecalciferol (VITAMIN D3) 5,000 Unit Cap, PO 05/09/24 Losartan Potassium (Losartan Potassium) 100 Mg Tab, 1 TAB PO DAILY 05/09/24 Amlodipine Besylate (Amlodipine Besylate) 10 Mg Tab, 1 TAB PO DAILY 05/09/24 Semaglutide (Ozempic) 8 Mg/3 Ml Inj, 2 MG SC QWEEKLY 05/09/24 Metoprolol Succinate (Metoprolol Succinate Er) 50 Mg Tab, 1 TAB PO DAILY 05/09/24 Tiotropium [place] Monohydrate (Spiriva Respimat) 2.5 Mcg/Act Spr, 2 PUFF INH DAILY 05/09/24 Cefpodoxime Proxetil (Cefpodoxime Proxetil) 200 Mg Tab, 1 TAB PO BID 05/09/24 Aspirin (Aspirin Low Dose) 81 Mg Tab, 1 TAB PO DAILY 05/09/24 Hydralazine Hcl (Hydralazine Hcl) 100 Mg Tab, 1 TAB PO Q8H 05/09/24 Albuterol Sulfate (Albuterol Sulfate Hfa) 108 Mcg/Act Aer, INH 05/09/24 Current Medications Current Medications Medications (Trade) Dose Ordered Sig/Inga Route PRN Reason Start Time Stop Time Status Last Admin Carvedilol (Coreg Tablet) 6.25 mg Q12HR PO 05/08/24 22:00 05/09/24 09:38 Lisinopril (Zestril Tablet) 10 mg DAILY PO 05/09/24 10:00 05/09/24 09:37 Hydralazine HCl (Apresoline Injection) 10 mg Q6HP PRN IV SBP>150 05/08/24 18:45 Furosemide (Lasix Injection) 20 mg BIDD IV 05/09/24 06:00 05/09/24 05:34 Aspirin 162 mg DAILY PO 05/09/24 10:00 05/09/24 09:35 Atorvastatin Calcium (Lipitor) 10 mg HS PO 05/08/24 22:00 05/08/24 23:14 Levofloxacin/ Dextrose 100 ml @ 100 mls/hr DAILY IV 05/09/24 10:00 05/09/24 15:12 DC 05/09/24 09:38 Albuterol (Ventolin Medneb) 2.5 mg Q6HPRN PRN NEB SHORTNESS OF BREATH 05/08/24 18:45 05/09/24 11:46 Ondansetron HCl (Zofran) 4 mg Q4HP PRN IV NAUSEA / VOMITING 05/08/24 18:45 05/08/24 20:27 Enoxaparin Sodium (Lovenox) 40 mg DAILY SC 05/09/24 10:00 05/09/24 09:38 Acetaminophen (Tylenol Tablet) 650 mg Q6HP PRN PO PAIN SCALE 1-3 OR TEMP>100.4 05/08/24 18:45 Nitroglycerin (Ntrostat Sublingual) 0.4 mg Q5MINP PRN SL FOR CHEST PAIN 05/08/24 18:45 Morphine Sulfate 2 mg Q30M PRN IV FOR CHEST PAIN 05/08/24 18:45 05/08/24 22:57 Cefepime HCl 50 ml @ 12.5 mls/hr Q12HR IV 05/09/24 22:00 UNV Doxycycline Hyclate 100 ml @ 50 mls/hr Q12H IV 05/09/24 15:15 UNV Review of Systems Constitutional: No symptom reported Ears, Nose, & Throat: No symptom reported Eyes: No symptom reported Neurological: No symptoms reported Pulmonary/Respiratory: Shortness of breath Cardiovascular: Dyspnea, chest pain Gastrointestinal: No symptom reported Genitourinary: No symptom reported Musculoskeletal: No symptom reported Skin: No symptom reported Psychiatric: No symptom reported Endocrine: No symptom reported Hemotologic/Lymphatic: No symptom reported Vital Signs Vital Signs Date Time Temp Pulse Resp B/P (MAP) Pulse Ox O2 Delivery O2 Flow Rate FiO2 05/09/24 14:56 84 97 Facial BiPAP Mask 30 05/09/24 12:37 97.3 18 128/91 (103) 97.3 05/09/24 10:00 8 Physical Exam GENERAL: Awake, alert, oriented. LUNGS: Diminished breath sounds. CARDIOVASCULAR: Heart sounds are good. ABDOMEN: Soft. Labs/Diagnostic Data Labs Test 05/09/24 07:50 05/08/24 20:07 05/08/24 19:35 05/08/24 18:22 Range/Units White Blood Count 10.4 4.4-10.8 10^3/uL Red Blood Count 4.28 L 4.5-5.90 10^6/uL Hemoglobin 12.6 L 13.5-17.5 g/dL Hematocrit 36.3 L 41.0-53.0 % Mean Corpuscular Volume 84.9 80.0-100.0 fL Mean Corpuscular Hemoglobin 29.4 28.0-32.0 pg Mean Corpuscular Hemoglobin Concent 34.6 32.0-36.0 g/dL Red Cell Distribution Width 18.9 H 11.8-14.3 % Platelet Count 278 140-450 10^3/uL Mean Platelet Volume 7.3 6.9-10.8 fL Neutrophils (%) (Auto) 90.9 H 37.0-80.0 % Lymphocytes (%) (Auto) 6.4 L 10.0-50.0 % Monocytes (%) (Auto) 2.6 0.0-12.0 % Eosinophils (%) (Auto) 0.0 0.0-7.0 % Basophils (%) (Auto) 0.1 0.0-2.0 % Neutrophils # (Auto) 9.4 H 1.6-8.6 10 ^3/uL Lymphocytes # (Auto) 0.7 0.4-5.4 10 ^3/uL Monocytes # (Auto) 0.3 0-1.3 10 ^3/uL Eosinophils # (Auto) 0 0-0.8 10 ^3/uL Basophils # (Auto) 0 0-0.2 10 ^3/uL Nucleated Red Blood Cells 0.1 % Sodium Level 136 136-145 mmol/L Potassium Level 4.4 3.5-5.1 mmol/L Chloride Level 101 98-107 mmol/L Carbon Dioxide Level 27 20-31 mmol/L Anion Gap 8 5-15 Blood Urea Nitrogen 27 #H 9-23 mg/dL Creatinine 2.03 H 0.700-1.30 mg/dL Glomerular Filtration Rate Calc 38 >90 mL/min BUN/Creatinine Ratio 13.3 10.0-20.0 Serum Glucose 141 H 74-106 mg/dL Calcium Level 9.2 8.7-10.4 mg/dL Total Bilirubin 1.2 H 0.2-1.0 mg/dL Aspartate Amino Transferase (AST) 29 13-40 U/L Alanine Aminotransferase (ALT) 113 H 7-40 U/L Alkaline Phosphatase 70 46-116 U/L B-Type Natriuretic Peptide 871.89 0-100 pg/mL Total Protein 7.4 5.7-8.2 g/dL Albumin 4.3 3.2-4.8 g/dL Troponin I High Sensitivity 104 *H </=54 ng/L Triglycerides Level 78 < 150 mg/dL Cholesterol Level 198 < 200 mg/dL LDL Cholesterol 112 H < 100 mg/dL HDL Cholesterol 55 40-59 mg/dL Thyroid Stimulating Hormone (TSH) 0.20 L 0.55-4.78 uIU/mL Blood Gas Specimen Type Arterial Blood Gas Sample Site Right radial Blood Gas Patient Temperature 37.0 Arterial Blood Date Drawn [id number] Arterial Blood pH 7.413 7.350-7.450 Arterial Blood Partial Pressure CO2 35.1 35.0-48.0 mmHg Arterial Blood Partial Pressure O2 380.2 *H 83.0-108.0 mmHg Arterial Blood HCO3 21.9 21.0-28.0 mmol/L Arterial Blood Oxygen Saturation 99.9 H 94.0-98.0 % Arterial Blood Base Excess -2.1 L -2.0-3.0 mmol/L Arterial Blood Oxyhemoglobin 98.4 H 94.0-98.0 % Arterial Blood Carboxyhemoglobin 0.8 0.5-1.5 % Arterial Blood Methemoglobin 0.7 0.0-1.5 % Phu Test Modified Blood Gas Total Hemoglobin 12.90 L 13.5-17.5 g/dL Blood Gas Set Respiration Rate 12.0 Blood Gas Modality Mask - bipap Blood Gas Spontaneous Rate 15 FiO2 % 100.0 Blood Gas Spontaneous Tidal Volume 614 Blood Gas EPAP 5 Blood Gas IPAP 12 Bl Gas Inspiratory/Expiratory Ratio 1:2 Blood Gas Critical Value Read Back Yes Blood Gas Notified Whom Do [email or web address] cristiano Blood Gas Notified Time [id number] Blood Gas Notified By Rtmolly Urine Color Light-yellow Yellow Urine Clarity Clear Clear Urine pH 6.5 5.0-9.0 Urine Specific [place] 1.008 1.001-1.035 Urine Protein 2+ H Negative Urine Ketones Negative Negative Urine Blood Negative Negative /uL Urine Nitrite Negative Negative Urine Bilirubin Negative Negative Urine Urobilinogen Normal Negative mg/dL Urine Leukocyte Esterase Negative Negative /uL Urine RBC 1 0 - 3 /hpf Urine Microscopic WBC < 1 0-3 /HPF Urine Squamous Epithelial Cells None seen <5 /hpf Urine Bacteria None seen None Seen /hpf Urine Glucose Normal Normal mg/dL Urine Opiates Screen Neg NEGATIVE Urine Fentanyl Screen Neg NEGATIVE Urine Barbiturates Screen Neg NEGATIVE Urine Phencyclidine Screen Neg NEGATIVE Urine Amphetamines Screen Neg NEGATIVE Urine Benzodiazepines Screen Neg NEGATIVE Urine Cocaine Screen Neg NEGATIVE Urine Cannabinoids Screen Neg NEGATIVE Test 05/08/24 17:50 05/08/24 17:06 05/08/24 16:56 05/08/24 16:51 Range/Units Influenza Type A Antigen Negative Negative Influenza Type B Antigen Negative Negative SARS-CoV-2 Antigen (Rapid) Negative NEGATIVE Prothrombin Time 11.4 9.3-11.8 sec Prothrombin Time INR 1.08 0.9-1.15 Activated Partial Thromboplast Time 34.2 24.5-34.5 SEC D-Dimer, Quantitative 0.78 H 0.0-0.49 mg/L FEU Magnesium Level 2.0 1.6-2.6 mg/dL Lactic Acid Level 0.8 0.4-2.0 mmol/L POC Glucose 108 H 70-106 mg/dl Microbiology Date/Time Source Procedure Growth Status 05/09/24 03:55 Nose MRSA Screen - Final Complete Assessment Acute decompensated heart failure, recently diagnosed. Accelerated hypertension. Acute on chronic respiratory failure with hypoxemia. Elevated troponin likely secondary to above. JUNIOR on CKD. Possible pneumonia. Tobacco and marijuana use. Obesity. Plan/Recommendation I agree with your ongoing assessment and care of plan. Patient has been seen by Ashley Navarro NP on my behalf, her and I discussed the plan with the patient. Echocardiogram to evaluate cardiac function. Continue with diuresis closely monitor kidney function. Avoid GIOVANY and arbs given worsening kidney function. Continue to monitor blood. Daily weight, strict intake and output. Continue to monitor on telemetry. Counseled on smoking and marijuana cessation. Additional plan as per the hospital course. Plan discussed with: Patient NYHA Physical activity limitations: Class2(Slight)fatigue,sob Date of Service: May 09, 2024 Billing Provider: DANIEL ROBBINS MD Cardiology Common Codes: [id number] INP/OBS CARE (High) Cardiology Consultation Codes: [id number] CONSULT <45MIN DANIEL ROBBINS MD May 09, 2024 15:35
[2024-05-10] VITALS (13 sets, daily range): BP systolic 122–169; BP diastolic 80–114; PULSE 73–118; RESP 16–20; TEMP 98.1–100.2; O2SAT 91–100
[2024-05-10] MEDS: MELATONIN 5 MG TAB PO ONE (02:10)
[2024-05-10 06:35] LABS: Basophils # (auto) 0.1 10 ^3/uL (0-0.2); Basophils % (auto) 0.4 % (0.0-2.0); Eosinophils # (auto) 0.1 10 ^3/uL (0-0.8); Eosinophils % (auto) 0.3 % (0.0-7.0); Hemoglobin 12.7 g/dL (13.5-17.5); Mean Corpuscular Hemoglobin 28.8 pg (28.0-32.0); Mean Corpuscular Hgb Conc. 33.4 g/dL (32.0-36.0); Mean Corpuscular Volume 86.2 fL (80.0-100.0); Monocytes # (auto) 0.6 10 ^3/uL (0-1.3); Monocytes % (auto) 2.9 % (0.0-12.0); Neutrophils # (auto) 18.2 10 ^3/uL (1.6-8.6); Neutrophils % (auto) 91.4 % (37.0-80.0); Platelet Count (auto) 323 10^3/uL (140-450); Red Blood Cells 4.41 10^6/uL (4.5-5.90); Red Cell Distribution Width 18.8 % (11.8-14.3); White Blood Cell 19.9 10^3/uL (4.4-10.8)
[2024-05-10 06:56] LABS: Albumin 4.2 g/dL (3.2-4.8); Alkaline Phosphatase 61 U/L (46-116); Anion Gap 7 (5-15); Aspartate Aminotransferase 24 U/L (13-40); Bilirubin, Total 0.8 mg/dL (0.2-1.0); Calcium 9.2 mg/dL (8.7-10.4); Carbon Dioxide 25 mmol/L (20-31); Chloride 106 mmol/L (98-107); Glucose 81 mg/dL (74-106); Potassium 4.2 mmol/L (3.5-5.1); Sodium 138 mmol/L (136-145); Total Protein 7.1 g/dL (5.7-8.2)
[2024-05-10 06:58] LABS: Alanine Aminotransferase 89 U/L (7-40); Blood Urea Nitrogen 34 mg/dL (9-23)
[2024-05-10] MEDS: hydrALAZINE HCL 20 MG/ML VL IV PRN (08:22)
[2024-05-10 10:16] LABS: Hepatitis B Surface Antigen Negative (Negative)
[2024-05-10 10:33] LABS: Hepatitis C Antibody Negative (Negative)
--- NOTE | 2024-05-10 11:02 | ECG ---
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
--- NOTE | 2024-05-10 18:27 | DVHPN2 ---
Subjective Update 05/10 05/09 patient presenting after recent admission in another hospital in [facility]. He was treated extensively for pneumonia for 6 days. He was visiting his uncle up in [place] and while driving down and trying to feel gas and gas station he felt sudden chills and had sudden loss of urine and bowel bladder. No loss of consciousness no shakes tongue bite. He has heart failure but appears to be close to euvolemia/mildly hypervolemic. Given his chills he was likely has pneumonia recurrence. We will continue treatment with Lasix and IV antibiotics. 05/10 cardiology evaluated. Echo finding severe MR and severe PH RVSP 68 mm Hg, LVEF 40%, global LV hypokinesis, dilated LV. Cardiology suggests patient needs mitral valve clip which can be done outpatient. Patient appears to be close to euvolemia, creatinine increasing with further diuresis. We will hold off further diuresis and continue IV antibiotics. Mildly dilated RV, no tachycardia, PE lower suspicion. Likely pneumonia for now we will continue IV antibiotics. Maintain oxygen more than 90%. Reviewed: H&P Changes from previous H/P or p: No Changes General: Per HPI Objective Vitals Vital Signs Date Time Temp Pulse Resp B/P (MAP) Pulse Ox O2 Delivery O2 Flow Rate FiO2 05/10/24 16:44 99.1 91 18 146/97 (113) 93 99.1 05/10/24 10:00 Oxymizer 6.0 05/10/24 10:00 N/A Intake/Output Intake and Output 05/10/24 07:00 Intake Total 2030 ml Output Total 625 ml Balance 1405 ml Intake Oral 1680 ml IV Total 350 ml Output Urine Total 625 ml # Voids 5 # Bowel Movements 1 Exam GEN: Mild distress, he was on BiPAP. HEENT: NC/AT; MMM. CV: RRR, no m/r/g. LUNGS: Some faint rhonchi right middle lobe. Otherwise distant breath sounds. ABD: Soft, NT/ND, NBS, no masses or organomegaly. EXT: skin Warm, well perfused. no rashes. No clubbing, cyanosis, or edema. NEURO: Ambulating with no limitations. No focal deficits. Medications Current Medications Medications Dose Ordered Sig/Inga Route Start Time Stop Time Status Last Admin Dose Admin Carvedilol 6.25 mg Q12HR PO 05/08/24 22:00 05/10/24 10:25 6.25 MG Lisinopril 10 mg DAILY PO 05/09/24 10:00 05/09/24 09:37 10 MG Hydralazine HCl 10 mg Q6HP PRN IV 05/08/24 18:45 05/10/24 08:22 10 MG Aspirin 162 mg DAILY PO 05/09/24 10:00 05/10/24 10:23 162 MG Atorvastatin Calcium 10 mg HS PO 05/08/24 22:00 05/09/24 21:27 10 MG Albuterol 2.5 mg Q6HPRN PRN NEB 05/08/24 18:45 05/10/24 08:54 2.5 MG Ondansetron HCl 4 mg Q4HP PRN IV 05/08/24 18:45 05/08/24 20:27 4 MG Enoxaparin Sodium 40 mg DAILY SC 05/09/24 10:00 05/10/24 10:23 40 MG Acetaminophen 650 mg Q6HP PRN PO 05/08/24 18:45 Nitroglycerin 0.4 mg Q5MINP PRN SL 05/08/24 18:45 Morphine Sulfate 2 mg Q30M PRN IV 05/08/24 18:45 05/10/24 10:39 2 MG Cefepime HCl 50 ml @ 12.5 mls/hr Q12HR IV 05/09/24 22:00 05/10/24 10:25 12.5 MLS/HR Doxycycline Hyclate 100 ml @ 50 mls/hr Q12H IV 05/09/24 15:15 05/10/24 02:36 50 MLS/HR Acetaminophen/ Hydrocodone Bitart 1 tab Q6HP PRN PO 05/09/24 16:15 05/10/24 14:58 1 TAB Morphine Sulfate 2 mg Q6HPRN PRN IV 05/09/24 16:15 05/10/24 00:08 2 MG Laboratory Results Laboratory Tests 05/10/24 05:58 Chemistry Test 05/10/24 05:58 Albumin 4.2 g/dL (3.2-4.8) Calcium Level 9.2 mg/dL (8.7-10.4) Total Protein 7.1 g/dL (5.7-8.2) LFT Test 05/10/24 05:58 Alanine Aminotransferase (ALT) 89 U/L (7-40) H Alkaline Phosphatase 61 U/L (46-116) Aspartate Amino Transferase (AST) 24 U/L (13-40) Total Bilirubin 0.8 mg/dL (0.2-1.0) Urinalysis Test 05/08/24 18:22 Urine Color Light-yellow (Yellow) Urine Clarity Clear (Clear) Urine pH 6.5 (5.0-9.0) Urine Specific [place] 1.008 (1.001-1.035) Urine Protein 2+ (Negative) H Urine Ketones Negative (Negative) Urine Blood Negative /uL (Negative) Urine Nitrite Negative (Negative) Urine Bilirubin Negative (Negative) Urine Urobilinogen Normal mg/dL (Negative) Urine Leukocyte Esterase Negative /uL (Negative) Urine RBC 1 /hpf (0 - 3) Urine Microscopic WBC < 1 /HPF (0-3) Urine Squamous Epithelial Cells None seen /hpf (<5) Urine Bacteria None seen /hpf (None Seen) Urine Glucose Normal mg/dL (Normal) Microbiology Microbiology Date/Time Source Procedure Growth Status 05/09/24 03:55 Nose MRSA Screen - Final Complete 05/08/24 17:36 Blood Blood Culture - Preliminary NO GROWTH AFTER 48 HOURS OF INCUBATION. Resulted Labs and/or images reviewed: Labs reviewed by me, Image(s) reviewed by me Assessment/Plan Assessment/Plan 05/10 cardiology evaluated. Echo finding severe MR and severe PH RVSP 68 mm Hg, LVEF 40%, global LV hypokinesis, dilated LV. Cardiology suggests patient needs mitral valve clip which can be done outpatient. Patient appears to be close to euvolemia, creatinine increasing with further diuresis. We will hold off further diuresis and continue IV antibiotics. Mildly dilated RV, no tachycardia, PE lower suspicion. Likely pneumonia for now we will continue IV antibiotics. Maintain oxygen more than 90%. Acute on chronic hypoxic respiratory failure due to below (chronic home oxygen 2 L) Acute complicated pneumonia , Gram-negative Gram-positive possible Acute on chronic Diastolic and systolic, heart failure exacerbation Severe pulmonary hypertension Severe mitral regurg Elevated troponin likely secondary to above JUNIOR on CKD Accelerated hypertension Tobacco and marijuana use Obesity continue treatment with Lasix and IV antibiotics (cefepime/doxycycline). - echocardiogram to evaluate cardiac function - continue with diuresis closely monitor kidney function - avoid GIOVANY and arbs given worsening kidney function - Continue to monitor blood - daily weight, strict intake and output - continue to monitor on telemetry - counseled on smoking and marijuana cessation -MV clip outpatient. Plan discussed with: Patient My Orders Orders - CARLOS HARTLEY MD Procedure Category Date Status Time Chest Without Contrast CT 05/10/24 Taken 10:05 Date of Service: May 10, 2024 Billing Provider: CARLOS HARTLEY MD Common Visit Codes: [id number] INP/OBS CARE(HIGH) CARLOS HARTLEY MD May 10, 2024 18:27
--- NOTE | 2024-05-10 20:41 | DVH ---
Procedure: CT CHEST WITHOUT CONTRAST Reason for study/Clinical History: eval sob Comparison Study: None available at time of dictation. Exam Date: 05/10/2024 06:03 PM TECHNIQUE: Multidetector CT of the chest was performed from the lung apices to the upper abdomen with out the use of intravenous contract. Axial, coronal and sagittal multiplanar reformats were performed . Radiation Dose Information: CT Dose: CTDI volume is 17.92 mGy. Dose-length product is 707.39 mGy*cm The dose indicators for CT are the volume Computed Tomography (CT) Dose Index (CTDIvol) and the Dose Length Product (DLP), and are measured in units of mGy and mGy-cm, respectively. These indicators are not patient dose, but values generated from the CT scanner acquisition factors. The report includes radiation exposure data for exposures received during this examination. FINDINGS: Lower neck: Normal thyroid. Lungs: No focal consolidation, pleural effusion or pneumothorax. Mild airspace disease left infrahila r region adjacent to the descending aorta may represent scarring or infiltrate. ( Series 3 ; images 2 6- 33) Heart/Vascular Structures: Normal heart size. No pericardial effusion. Lymph Nodes: Pretracheal lymph nodes largest measures 13 0.4 mm in short axis dimension. Small bilat eral axillary lymph nodes Pleura: No pleural effusion or significant pneumothorax. Musculoskeletal: No acute osseous abnormality. Soft tissues: Normal. Upper abdomen: Limited portions of the upper abdomen are unremarkable. IMPRESSION: 1. Small pretracheal lymph nodes the largest measures 13 mm in short axis dimension 2. Left suprahilarr infiltrate or scarring in the periaortic region ( Series 3 ; images 26- 33) 3. Numerous bilateral axillary lymph nodes. Appear small. Radiation optimization: All CT scans at this facility use at least one of these dose optimization bethany hniques: automated exposure control mA and/or kV adjustment per patient size (includes targeted exam s where dose is matched to clinical indication) or iterative reconstruction.
--- NOTE | 2024-05-10 22:38 | DVHPN2 ---
Progress Note - Dictate Date Seen: May 10, 2024 Medical Necessity Reason Pt with a Central, PICC or Fol: No Subjective Patient was seen and evaluated in follow up. Patient is complaining of generalized pain. Patient is on [address] chest shows small pretracheal lymph nodes the largest measures 13 mm in short axis dimension, left suprahilarr infiltrate or scarring in the periaortic region and numerous bilateral axillary lymph nodes. Appear small. WBC 19.9, BUN 34, Radiologist 2.3, T3 0.66. Telemetry reviewed. vital signs Vital Sign Date Time Temp Pulse Resp B/P (MAP) Pulse Ox O2 Delivery O2 Flow Rate FiO2 05/10/24 21:53 93 96 Facial BiPAP Mask 30 05/10/24 21:53 5 05/10/24 21:33 19 157/97 05/10/24 21:00 98.9 98.9 Total Intake and Output 05/09/24 05/09/24 05/10/24 15:00 23:00 07:00 Intake Total 100 ml 1180 ml 750 ml Output Total 625 ml Balance 100 ml 1180 ml 125 ml medications Current Medications Medications Dose Ordered Sig/Inga Route Start Time Stop Time Status Last Admin Dose Admin Carvedilol 6.25 mg Q12HR PO 05/08/24 22:00 05/10/24 21:31 6.25 MG Lisinopril 10 mg DAILY PO 05/09/24 10:00 05/09/24 09:37 10 MG Hydralazine HCl 10 mg Q6HP PRN IV 05/08/24 18:45 05/10/24 08:22 10 MG Aspirin 162 mg DAILY PO 05/09/24 10:00 05/10/24 10:23 162 MG Atorvastatin Calcium 10 mg HS PO 05/08/24 22:00 05/10/24 21:31 10 MG Albuterol 2.5 mg Q6HPRN PRN NEB 05/08/24 18:45 05/10/24 21:53 2.5 MG Ondansetron HCl 4 mg Q4HP PRN IV 05/08/24 18:45 05/08/24 20:27 4 MG Enoxaparin Sodium 40 mg DAILY SC 05/09/24 10:00 05/10/24 10:23 40 MG Acetaminophen 650 mg Q6HP PRN PO 05/08/24 18:45 Nitroglycerin 0.4 mg Q5MINP PRN SL 05/08/24 18:45 Morphine Sulfate 2 mg Q30M PRN IV 05/08/24 18:45 05/10/24 10:39 2 MG Cefepime HCl 50 ml @ 12.5 mls/hr Q12HR IV 05/09/24 22:00 05/10/24 21:31 12.5 MLS/HR Doxycycline Hyclate 100 ml @ 50 mls/hr Q12H IV 05/09/24 15:15 05/10/24 18:26 50 MLS/HR Acetaminophen/ Hydrocodone Bitart 1 tab Q6HP PRN PO 05/09/24 16:15 05/10/24 14:58 1 TAB Morphine Sulfate 2 mg Q6HPRN PRN IV 05/09/24 16:15 05/10/24 21:33 2 MG objective GENERAL: Awake, alert, oriented. LUNGS: Diminished breath sounds. CARDIOVASCULAR: Heart sounds are good. ABDOMEN: Soft. laboratory and microbiology Laboratory Tests 05/10/24 05:58 Test 05/10/24 05:58 Range/Units Serum Glucose 81 74-106 mg/dL Problem List Acute decompensated heart failure, recently diagnosed. Accelerated hypertension. Acute on chronic respiratory failure with hypoxemia. Elevated troponin likely secondary to above. JUNIOR on CKD. Possible pneumonia. Tobacco and marijuana use. Obesity. Assessment/Plan Continued all current supportive medical care. Echocardiogram to evaluate cardiac function. Morphine and [place] for pain management. Aspirin, Lipitor. Coreg, Lisinopril. IV antibiotics as ordered. Additional plan as per the hospital course. Plan discussed with: Patient DANIEL ROBBINS MD May 10, 2024 22:38
[2024-05-11] VITALS (11 sets, daily range): BP systolic 131–146; BP diastolic 82–96; PULSE 80–105; RESP 17–20; TEMP 98.1–99.1; O2SAT 93–100
--- NOTE | 2024-05-11 10:13 | DVHPN2 ---
Subjective Update 05/11 05/09 patient presenting after recent admission in another hospital in [facility]. He was treated extensively for pneumonia for 6 days. He was visiting his uncle up in [place] and while driving down and trying to feel gas and gas station he felt sudden chills and had sudden loss of urine and bowel bladder. No loss of consciousness no shakes tongue bite. He has heart failure but appears to be close to euvolemia/mildly hypervolemic. Given his chills he was likely has pneumonia recurrence. We will continue treatment with Lasix and IV antibiotics. 05/10 cardiology evaluated. Echo finding severe MR and severe PH RVSP 68 mm Hg, LVEF 40%, global LV hypokinesis, dilated LV. Cardiology suggests patient needs mitral valve clip which can be done outpatient. Patient appears to be close to euvolemia, creatinine increasing with further diuresis. We will hold off further diuresis and continue IV antibiotics. Mildly dilated RV, no tachycardia, PE lower suspicion. Likely pneumonia for now we will continue IV antibiotics. Maintain oxygen more than 90%. 05/11 patient still for breath Oxymizer 8 L. using BiPAP at night as instructed. Compliant with therapies. Diffuse wheezing. Patient was dizzy yesterday as well. Avoiding further diuresis as creatinine is rising with no diuresis. We will start steroids treat as pneumonia causing COPD exacerbation. Cardizem recommend MV clip outpatient. 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 HEENT: NC/AT; MMM. CV: RRR, no m/r/g. LUNGS: Expiratory wheezing bilaterally diffuse. Otherwise distant breath sounds. ABD: Soft, NT/ND, NBS, no masses or organomegaly. EXT: skin Warm, well perfused. no rashes. No clubbing, cyanosis, or edema. NEURO: Ambulating with no limitations. No focal deficits. Medications Current Medications Medications Dose Ordered Sig/Inga Route Start Time Stop Time Status Last Admin Dose Admin Carvedilol 6.25 mg Q12HR PO 05/08/24 22:00 05/10/24 21:31 6.25 MG Lisinopril 10 mg DAILY PO 05/09/24 10:00 05/09/24 09:37 10 MG Hydralazine HCl 10 mg Q6HP PRN IV 05/08/24 18:45 05/10/24 08:22 10 MG Aspirin 162 mg DAILY PO 05/09/24 10:00 05/10/24 10:23 162 MG Atorvastatin Calcium 10 mg HS PO 05/08/24 22:00 05/10/24 21:31 10 MG Albuterol 2.5 mg Q6HPRN PRN NEB 05/08/24 18:45 05/10/24 21:53 2.5 MG Ondansetron HCl 4 mg Q4HP PRN IV 05/08/24 18:45 05/11/24 05:48 4 MG Enoxaparin Sodium 40 mg DAILY SC 05/09/24 10:00 05/10/24 10:23 40 MG Acetaminophen 650 mg Q6HP PRN PO 05/08/24 18:45 Nitroglycerin 0.4 mg Q5MINP PRN SL 05/08/24 18:45 Morphine Sulfate 2 mg Q30M PRN IV 05/08/24 18:45 05/10/24 10:39 2 MG Cefepime HCl 50 ml @ 12.5 mls/hr Q12HR IV 05/09/24 22:00 05/10/24 21:31 12.5 MLS/HR Doxycycline Hyclate 100 ml @ 50 mls/hr Q12H IV 05/09/24 15:15 05/11/24 03:15 50 MLS/HR Acetaminophen/ Hydrocodone Bitart 1 tab Q6HP PRN PO 05/09/24 16:15 05/10/24 14:58 1 TAB Morphine Sulfate 2 mg Q6HPRN PRN IV 05/09/24 16:15 05/11/24 05:48 2 MG Methylprednisolone Sodium Succinate 20 mg BID IV 05/11/24 22:00 UNV Laboratory Results Laboratory Tests 05/10/24 05:58 Urinalysis Test 05/08/24 18:22 Urine Color Light-yellow (Yellow) Urine Clarity Clear (Clear) Urine pH 6.5 (5.0-9.0) Urine Specific [place] 1.008 (1.001-1.035) Urine Protein 2+ (Negative) H Urine Ketones Negative (Negative) Urine Blood Negative /uL (Negative) Urine Nitrite Negative (Negative) Urine Bilirubin Negative (Negative) Urine Urobilinogen Normal mg/dL (Negative) Urine Leukocyte Esterase Negative /uL (Negative) Urine RBC 1 /hpf (0 - 3) Urine Microscopic WBC < 1 /HPF (0-3) Urine Squamous Epithelial Cells None seen /hpf (<5) Urine Bacteria None seen /hpf (None Seen) Urine Glucose Normal mg/dL (Normal) Microbiology Microbiology Date/Time Source Procedure Growth Status 05/09/24 03:55 Nose MRSA Screen - Final Complete 05/08/24 17:36 Blood Blood Culture - Preliminary NO GROWTH AFTER 48 HOURS OF INCUBATION. Resulted Labs and/or images reviewed: Labs reviewed by me, Image(s) reviewed by me Assessment/Plan Assessment/Plan 05/11 patient still for breath Oxymizer 8 L. using BiPAP at night as instructed. Compliant with therapies. Diffuse wheezing. Patient was dizzy yesterday as well. Avoiding further diuresis as creatinine is rising with no diuresis. We will start steroids treat as pneumonia causing COPD exacerbation. Cardizem recommend MV clip outpatient. 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 -start steroids Solu-Medrol IV 20 b.i.d. - echocardiogram to evaluate cardiac function - . Stops diuresis closely monitor kidney function, creatinine rising - avoid GIOVANY and arbs given worsening kidney function - Continue to monitor blood - daily weight, strict intake and output - continue to monitor on telemetry - counseled on smoking and marijuana cessation -MV clip outpatient. BEDSIDE LIMITED ABDOMINAL ULTRASOUND 05/11/24 - done to assess volume status. IVC abdominal ultraound showing very distended IVC without any collapse with sniff maneuver. CPT code 41498 Diet cardiac DVT prophylaxis-Lovenox GI prophylaxis tolerating diet Med tele Full code Plan discussed with: Patient My Orders Orders - CARLOS HARTLEY MD Procedure Category Date Status Time Complete Blood Count LAB 05/11/24 Logged 09:21 Comprehensive LAB 05/11/24 Logged Metabolic Panel 09:21 Blood Culture GLENN 05/11/24 Transmitted 10:04 Methylprednisolone PHA 05/11/24 Logged Sod Succ (Solu Medrol 22:00 Methylprednisolone PHA 05/11/24 Logged Sod Succ (Solu Medrol 10:15 Date of Service: May 11, 2024 Billing Provider: CARLOS HARTLEY MD Common Visit Codes: [id number] INP/OBS CARE(HIGH) Secondary Visit Codes: [id number] CHNG SMOKING 3-10m, [id number] CARE PLAN 30 MINUTES CARLOS HARTLEY MD May 11, 2024 10:13
[2024-05-11 11:14] LABS: Basophils # (auto) 0.1 10 ^3/uL (0-0.2); Basophils % (auto) 0.4 % (0.0-2.0); Eosinophils # (auto) 0.1 10 ^3/uL (0-0.8); Eosinophils % (auto) 0.5 % (0.0-7.0); Hematocrit 33.4 % (41.0-53.0); Hemoglobin 11.3 g/dL (13.5-17.5); Lymphocytes # (auto) 0.8 10 ^3/uL (0.4-5.4); Lymphocytes % (auto) 5.2 % (10.0-50.0); Mean Corpuscular Volume 85.4 fL (80.0-100.0); Monocytes # (auto) 0.8 10 ^3/uL (0-1.3); Monocytes % (auto) 5.5 % (0.0-12.0); Neutrophils # (auto) 13.2 10 ^3/uL (1.6-8.6); Neutrophils % (auto) 88.4 % (37.0-80.0); Platelet Count (auto) 303 10^3/uL (140-450); Red Blood Cells 3.91 10^6/uL (4.5-5.90); Red Cell Distribution Width 18.3 % (11.8-14.3); White Blood Cell 14.9 10^3/uL (4.4-10.8)
[2024-05-11 11:37] LABS: Albumin 3.7 g/dL (3.2-4.8); Alkaline Phosphatase 52 U/L (46-116); Anion Gap 5 (5-15); Aspartate Aminotransferase 21 U/L (13-40); BUN/Creatinine Ratio 15.3 (10.0-20.0); Calcium 8.8 mg/dL (8.7-10.4); Carbon Dioxide 26 mmol/L (20-31); Chloride 104 mmol/L (98-107); Glucose 99 mg/dL (74-106); Potassium 3.9 mmol/L (3.5-5.1); Total Protein 6.4 g/dL (5.7-8.2)
[2024-05-11 11:38] LABS: Bilirubin, Total 1.1 mg/dL (0.2-1.0)
[2024-05-11 11:41] LABS: Alanine Aminotransferase 58 U/L (7-40); Blood Urea Nitrogen 28 mg/dL (9-23); Sodium 135 mmol/L (136-145)
[2024-05-11] MEDS: methylPREDNISolone SOD SUCC 40 MG/ML VL IV ONE (13:26)
[2024-05-11] MEDS: FUROSEMIDE 20 MG TAB PO ONE (15:45)
[2024-05-11] MEDS: methylPREDNISolone SOD SUCC 40 MG/ML VL IV SCH (21:32)
--- NOTE | 2024-05-11 22:08 | DVHPN2 ---
Progress Note - Dictate Date Seen: May 11, 2024 Medical Necessity Reason Pt with a Central, PICC or Fol: No Subjective Patient was seen and evaluated in follow up. Patient is complaining of SOB. She is on Oxymizer at 8 L and on Bi-PAP at night. Patient also endorses dizziness. Echocardiogram shows an EF of 40%, severe pulm HTM. WBC 14.9, BUN 28, [place] C[place] 1.83. Telemetry reviewed. vital signs Vital Sign Date Time Temp Pulse Resp B/P (MAP) Pulse Ox O2 Delivery O2 Flow Rate FiO2 05/11/24 21:33 83 18 140/89 05/11/24 20:55 98.9 95 98.9 05/11/24 20:00 Oxymizer 5 N/A Total Intake and Output 05/10/24 05/10/24 05/11/24 15:00 23:00 07:00 Intake Total 1140 ml 950 ml Output Total 1000 ml 300 ml Balance 140 ml 650 ml medications Current Medications Medications Dose Ordered Sig/Inga Route Start Time Stop Time Status Last Admin Dose Admin Carvedilol 6.25 mg Q12HR PO 05/08/24 22:00 05/11/24 21:32 6.25 MG Lisinopril 10 mg DAILY PO 05/09/24 10:00 05/11/24 10:35 10 MG Hydralazine HCl 10 mg Q6HP PRN IV 05/08/24 18:45 05/10/24 08:22 10 MG Aspirin 162 mg DAILY PO 05/09/24 10:00 05/11/24 10:34 162 MG Atorvastatin Calcium 10 mg HS PO 05/08/24 22:00 05/11/24 21:31 10 MG Albuterol 2.5 mg Q6HPRN PRN NEB 05/08/24 18:45 05/10/24 21:53 2.5 MG Ondansetron HCl 4 mg Q4HP PRN IV 05/08/24 18:45 05/11/24 05:48 4 MG Enoxaparin Sodium 40 mg DAILY SC 05/09/24 10:00 05/11/24 10:37 40 MG Acetaminophen 650 mg Q6HP PRN PO 05/08/24 18:45 Nitroglycerin 0.4 mg Q5MINP PRN SL 05/08/24 18:45 Morphine Sulfate 2 mg Q30M PRN IV 05/08/24 18:45 05/10/24 10:39 2 MG Cefepime HCl 50 ml @ 12.5 mls/hr Q12HR IV 05/09/24 22:00 05/11/24 21:31 12.5 MLS/HR Doxycycline Hyclate 100 ml @ 50 mls/hr Q12H IV 05/09/24 15:15 05/11/24 15:34 50 MLS/HR Acetaminophen/ Hydrocodone Bitart 1 tab Q6HP PRN PO 05/09/24 16:15 05/11/24 16:54 1 TAB Morphine Sulfate 2 mg Q6HPRN PRN IV 05/09/24 16:15 05/11/24 21:33 2 MG Methylprednisolone Sodium Succinate 20 mg BID IV 05/11/24 22:00 05/11/24 21:32 20 MG Furosemide 40 mg DAILY PO 05/12/24 10:00 objective GENERAL: Awake, alert, oriented. LUNGS: Diminished breath sounds. CARDIOVASCULAR: Heart sounds are good. ABDOMEN: Soft. laboratory and microbiology Laboratory Tests 05/11/24 10:40 Test 05/11/24 10:40 Range/Units Serum Glucose 99 74-106 mg/dL Problem List Acute decompensated heart failure, recently diagnosed. Accelerated hypertension. Acute on chronic respiratory failure with hypoxemia. Elevated troponin likely secondary to above. JUNIOR on CKD. Possible pneumonia. Tobacco and marijuana use. Obesity. Pulmonary HTN. Assessment/Plan Continued all current supportive medical care. Morphine and [place] for pain management. Aspirin, Lipitor. Coreg, Lisinopril. IV antibiotics as ordered. DVT prophylactics. Additional plan as per the hospital course. Dietary Evaluation Review Comments: 1) Refer Fruit And Vegetable Inspector on [place] 2) Continue current plan of care Expected Outcomes/Goals: lab values to improve fu 3-5 days Plan discussed with: Patient DANIEL ROBBINS MD May 11, 2024 22:08
[2024-05-12] VITALS (20 sets, daily range): BP systolic 118–148; BP diastolic 72–98; PULSE 70–105; RESP 16–20; TEMP 97.5–98.4; O2SAT 95–100
[2024-05-12 07:49] LABS: Alkaline Phosphatase 57 U/L (46-116); Anion Gap 7 (5-15); BUN/Creatinine Ratio 21.2 (10.0-20.0); Carbon Dioxide 25 mmol/L (20-31); Chloride 102 mmol/L (98-107); Potassium 4.4 mmol/L (3.5-5.1); Total Protein 6.6 g/dL (5.7-8.2)
[2024-05-12 07:50] LABS: Albumin 3.8 g/dL (3.2-4.8); Aspartate Aminotransferase 19 U/L (13-40); Bilirubin, Total 0.5 mg/dL (0.2-1.0)
[2024-05-12 07:51] LABS: Alanine Aminotransferase 58 U/L (7-40); Blood Urea Nitrogen 43 mg/dL (9-23); Calcium 8.2 mg/dL (8.7-10.4); Glucose 164 mg/dL (74-106); Sodium 134 mmol/L (136-145)
[2024-05-12 07:53] LABS: Basophils # (auto) 0 10 ^3/uL (0-0.2); Basophils % (auto) 0.1 % (0.0-2.0); Eosinophils # (auto) 0 10 ^3/uL (0-0.8); Hemoglobin 11.6 g/dL (13.5-17.5); Lymphocytes # (auto) 0.4 10 ^3/uL (0.4-5.4); Lymphocytes % (auto) 4.3 % (10.0-50.0); Mean Corpuscular Hemoglobin 28.9 pg (28.0-32.0); Mean Corpuscular Hgb Conc. 34.1 g/dL (32.0-36.0); Mean Corpuscular Volume 84.8 fL (80.0-100.0); Monocytes # (auto) 0.2 10 ^3/uL (0-1.3); Monocytes % (auto) 2.1 % (0.0-12.0); Neutrophils # (auto) 9.4 10 ^3/uL (1.6-8.6); Neutrophils % (auto) 93.5 % (37.0-80.0); Platelet Count (auto) 303 10^3/uL (140-450); Red Blood Cells 4.01 10^6/uL (4.5-5.90); Red Cell Distribution Width 17.8 % (11.8-14.3); White Blood Cell 10.1 10^3/uL (4.4-10.8)
[2024-05-12] MEDS: FUROSEMIDE 20 MG TAB PO SCH (09:51)
[2024-05-12] MEDS: IPRATROPIUM BROM 0.5 MG/2.5ML INH SOL NEB ONE (10:22)
[2024-05-12] MEDS: ALBUTEROL SULF 2.5 MG/0.5ML(0.5%) NEB SOLN NEB ONE (10:22)
[2024-05-12] MEDS: IPRATROPIUM BROM 0.5 MG/2.5ML INH SOL NEB SCH (11:42)
[2024-05-12] MEDS: ALBUTEROL SULF 2.5 MG/0.5ML(0.5%) NEB SOLN NEB SCH (11:43)
--- NOTE | 2024-05-12 16:33 | DVHPN2 ---
Subjective Update 05/12 05/09 patient presenting after recent admission in another hospital in [facility]. He was treated extensively for pneumonia for 6 days. He was visiting his uncle up in [place] and while driving down and trying to feel gas and gas station he felt sudden chills and had sudden loss of urine and bowel bladder. No loss of consciousness no shakes tongue bite. He has heart failure but appears to be close to euvolemia/mildly hypervolemic. Given his chills he was likely has pneumonia recurrence. We will continue treatment with Lasix and IV antibiotics. 05/10 cardiology evaluated. Echo finding severe MR and severe PH RVSP 68 mm Hg, LVEF 40%, global LV hypokinesis, dilated LV. Cardiology suggests patient needs mitral valve clip which can be done outpatient. Patient appears to be close to euvolemia, creatinine increasing with further diuresis. We will hold off further diuresis and continue IV antibiotics. Mildly dilated RV, no tachycardia, PE lower suspicion. Likely pneumonia for now we will continue IV antibiotics. Maintain oxygen more than 90%. 05/11 patient still for breath Oxymizer 8 L. using BiPAP at night as instructed. Compliant with therapies. Diffuse wheezing. Patient was dizzy yesterday as well. Avoiding further diuresis as creatinine is rising with no diuresis. We will start steroids treat as pneumonia causing COPD exacerbation. Arlinem recommend MV clip outpatient. 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 Still short of breath. Still requiring oxygen Oxymizer. Patient creatinine rises every time we try Lasix. But continues to appear euvolemic with pedal edema in faint rales but mostly wheezing. Patient's edema is likely going to be chronic unresolved we will due to severe PH. Patient was outpatient MV clip. Patient wheezing coughing, we will treat as possible COPD exacerbation due to pneumonia. Goal is to continue titrating patient down to home oxygen 4-5 L and improve mobility. Continue IV antibiotics, continue IV steroids b.i.d. Solu-Medrol 20 mg, continue p.o. Lasix 40 mg daily, continue med nebs q.6h, we will consider PT. Reviewed: H&P Changes from previous H/P or p: No Changes General: Per HPI Objective Vitals Vital Signs Date Time Temp Pulse Resp B/P (MAP) Pulse Ox O2 Delivery O2 Flow Rate FiO2 05/12/24 16:09 82 18 142/91 05/12/24 13:19 98.4 99 98.4 05/12/24 11:43 Oxymizer 5.0 05/12/24 11:43 N/A Intake/Output Intake and Output 05/12/24 07:00 Intake Total 2170 ml Output Total 1420 ml Balance 750 ml Intake Oral 2120 ml IV Total 50 ml Output Urine Total 1420 ml Exam GEN: Mild distress, he was on BiPAP. HEENT: NC/AT; MMM. CV: RRR, no m/r/g. LUNGS: Expiratory wheezing bilaterally diffuse. Otherwise distant breath sounds. ABD: Soft, NT/ND, NBS, no masses or organomegaly. EXT: skin Warm, well perfused. no rashes. No clubbing, cyanosis, or edema. NEURO: Ambulating with no limitations. No focal deficits. Medications Current Medications Medications Dose Ordered Sig/Inga Route Start Time Stop Time Status Last Admin Dose Admin Carvedilol 6.25 mg Q12HR PO 05/08/24 22:00 05/12/24 09:52 6.25 MG Lisinopril 10 mg DAILY PO 05/09/24 10:00 05/12/24 09:52 10 MG Hydralazine HCl 10 mg Q6HP PRN IV 05/08/24 18:45 05/10/24 08:22 10 MG Aspirin 162 mg DAILY PO 05/09/24 10:00 05/12/24 09:53 162 MG Atorvastatin Calcium 10 mg HS PO 05/08/24 22:00 05/11/24 21:31 10 MG Albuterol 2.5 mg Q6HPRN PRN NEB 05/08/24 18:45 05/11/24 22:18 2.5 MG Ondansetron HCl 4 mg Q4HP PRN IV 05/08/24 18:45 05/11/24 05:48 4 MG Enoxaparin Sodium 40 mg DAILY SC 05/09/24 10:00 05/12/24 09:49 40 MG Acetaminophen 650 mg Q6HP PRN PO 05/08/24 18:45 Nitroglycerin 0.4 mg Q5MINP PRN SL 05/08/24 18:45 Morphine Sulfate 2 mg Q30M PRN IV 05/08/24 18:45 05/12/24 16:09 2 MG Cefepime HCl 50 ml @ 12.5 mls/hr Q12HR IV 05/09/24 22:00 05/12/24 09:49 12.5 MLS/HR Doxycycline Hyclate 100 ml @ 50 mls/hr Q12H IV 05/09/24 15:15 05/12/24 15:48 50 MLS/HR Acetaminophen/ Hydrocodone Bitart 1 tab Q6HP PRN PO 05/09/24 16:15 05/12/24 09:54 1 TAB Morphine Sulfate 2 mg Q6HPRN PRN IV 05/09/24 16:15 05/11/24 21:33 2 MG Methylprednisolone Sodium Succinate 20 mg BID IV 05/11/24 22:00 05/12/24 10:12 20 MG Furosemide 40 mg DAILY PO 05/12/24 10:00 05/12/24 09:51 40 MG Albuterol 2.5 mg Q6HWA [facility] 05/12/24 12:00 05/12/24 11:43 2.5 MG Ipratropium [place] 0.5 mg Q6HWA [facility] 05/12/24 12:00 05/12/24 11:42 0.5 MG Laboratory Results Laboratory Tests 05/12/24 06:09 Chemistry Test 05/12/24 06:09 Albumin 3.8 g/dL (3.2-4.8) Calcium Level 8.2 mg/dL (8.7-10.4) L Total Protein 6.6 g/dL (5.7-8.2) LFT Test 05/12/24 06:09 Alanine Aminotransferase (ALT) 58 U/L (7-40) H Alkaline Phosphatase 57 U/L (46-116) Aspartate Amino Transferase (AST) 19 U/L (13-40) Total Bilirubin 0.5 mg/dL (0.2-1.0) Urinalysis Test 05/08/24 18:22 Urine Color Light-yellow (Yellow) Urine Clarity Clear (Clear) Urine pH 6.5 (5.0-9.0) Urine Specific [place] 1.008 (1.001-1.035) Urine Protein 2+ (Negative) H Urine Ketones Negative (Negative) Urine Blood Negative /uL (Negative) Urine Nitrite Negative (Negative) Urine Bilirubin Negative (Negative) Urine Urobilinogen Normal mg/dL (Negative) Urine Leukocyte Esterase Negative /uL (Negative) Urine RBC 1 /hpf (0 - 3) Urine Microscopic WBC < 1 /HPF (0-3) Urine Squamous Epithelial Cells None seen /hpf (<5) Urine Bacteria None seen /hpf (None Seen) Urine Glucose Normal mg/dL (Normal) Microbiology Microbiology Date/Time Source Procedure Growth Status 05/11/24 10:40 Blood Blood Culture - Preliminary NO GROWTH AFTER 24 HOURS OF INCUBATION. Resulted 05/09/24 03:55 Nose MRSA Screen - Final Complete Labs and/or images reviewed: Labs reviewed by me, Image(s) reviewed by me Assessment/Plan Assessment/Plan 05/12 patient is mildly improving symptoms. Still short of breath. Still requiring oxygen Oxymizer. Patient creatinine rises every time we try Lasix. But continues to appear euvolemic with pedal edema in faint rales but mostly wheezing. Patient's edema is likely going to be chronic unresolved we will due to severe PH. Patient was outpatient MV clip. Patient wheezing coughing, we will treat as possible COPD exacerbation due to pneumonia. Goal is to continue titrating patient down to home oxygen 4-5 L and improve mobility. Continue IV antibiotics, continue IV steroids b.i.d. Solu-Medrol 20 mg, continue p.o. Lasix 40 mg daily, continue med nebs q.6h, we will consider PT. Acute on chronic hypoxic respiratory failure due to below (chronic home oxygen 2 L) Acute COPD exacerbation, with pneumonitis Acute complicated pneumonia , Gram-negative Gram-positive possible Acute on chronic Diastolic and systolic, heart failure exacerbation Severe pulmonary hypertension Severe mitral regurg Elevated troponin likely secondary to above JUNIOR on CKD Accelerated hypertension Tobacco and marijuana use Obesity continue treatment with Lasix and IV antibiotics (cefepime/doxycycline). -start steroids Solu-Medrol IV 20 b.i.d. w mednebs q6hwa - echocardiogram to evaluate cardiac function - . Stops diuresis closely monitor kidney function, creatinine rising - avoid GIOVANY and arbs given worsening kidney function - Continue to monitor blood - daily weight, strict intake and output - continue to monitor on telemetry - counseled on smoking and marijuana cessation -MV clip outpatient. Diet cardiac DVT prophylaxis-Lovenox GI prophylaxis tolerating diet Med tele Full code Plan discussed with: Patient My Orders Orders - CARLOS HARTLEY MD Procedure Category Date Status Time Albuterol Medneb PHA 05/12/24 In Process (Ventolin Medneb) 12:00 Ipratropium Medneb PHA 05/12/24 In Process (Atrovent Medneb) 12:00 Date of Service: May 12, 2024 Billing Provider: CARLOS HARTLEY MD Common Visit Codes: [id number] INP/OBS CARE(HIGH) CARLOS HARTLEY MD May 12, 2024 16:33
[2024-05-12] MEDS: LACTULOSE 20Gm/30ML SOLN PO SCH (21:36)
[2024-05-12] MEDS: DOCUSATE SOD 100 MG CAP PO SCH (21:38)
--- NOTE | 2024-05-12 23:49 | DVHPN2 ---
Progress Note - Dictate Date Seen: May 12, 2024 Medical Necessity Reason Pt with a Central, PICC or Fol: No Subjective Patient was seen and evaluated in follow up. Patient is complaining of SOB. He remains on Oxymizer at 5 L. Patient reports mild improvement in symptoms. BUN 43, OPTICAL GLASS INSPECTOR 2.03, ALT 58. Telemetry reviewed. vital signs Vital Sign Date Time Temp Pulse Resp B/P (MAP) Pulse Ox O2 Delivery O2 Flow Rate FiO2 05/12/24 13:19 98.4 86 20 139/86 (103) 99 98.4 05/12/24 11:43 Oxymizer 5.0 05/12/24 11:43 N/A Total Intake and Output 05/11/24 05/11/24 05/12/24 15:00 23:00 07:00 Intake Total 170 ml 1200 ml 800 ml Output Total 800 ml 620 ml Balance 170 ml 400 ml 180 ml medications Current Medications Medications Dose Ordered Sig/Inga Route Start Time Stop Time Status Last Admin Dose Admin Carvedilol 6.25 mg Q12HR PO 05/08/24 22:00 05/12/24 09:52 6.25 MG Lisinopril 10 mg DAILY PO 05/09/24 10:00 05/12/24 09:52 10 MG Hydralazine HCl 10 mg Q6HP PRN IV 05/08/24 18:45 05/10/24 08:22 10 MG Aspirin 162 mg DAILY PO 05/09/24 10:00 05/12/24 09:53 162 MG Atorvastatin Calcium 10 mg HS PO 05/08/24 22:00 05/11/24 21:31 10 MG Albuterol 2.5 mg Q6HPRN PRN NEB 05/08/24 18:45 05/11/24 22:18 2.5 MG Ondansetron HCl 4 mg Q4HP PRN IV 05/08/24 18:45 05/11/24 05:48 4 MG Enoxaparin Sodium 40 mg DAILY SC 05/09/24 10:00 05/12/24 09:49 40 MG Acetaminophen 650 mg Q6HP PRN PO 05/08/24 18:45 Nitroglycerin 0.4 mg Q5MINP PRN SL 05/08/24 18:45 Morphine Sulfate 2 mg Q30M PRN IV 05/08/24 18:45 05/10/24 10:39 2 MG Cefepime HCl 50 ml @ 12.5 mls/hr Q12HR IV 05/09/24 22:00 05/12/24 09:49 12.5 MLS/HR Doxycycline Hyclate 100 ml @ 50 mls/hr Q12H IV 05/09/24 15:15 05/12/24 03:53 50 MLS/HR Acetaminophen/ Hydrocodone Bitart 1 tab Q6HP PRN PO 05/09/24 16:15 05/12/24 09:54 1 TAB Morphine Sulfate 2 mg Q6HPRN PRN IV 05/09/24 16:15 05/11/24 21:33 2 MG Methylprednisolone Sodium Succinate 20 mg BID IV 05/11/24 22:00 05/12/24 10:12 20 MG Furosemide 40 mg DAILY PO 05/12/24 10:00 05/12/24 09:51 40 MG Albuterol 2.5 mg Q6HWA [facility] 05/12/24 12:00 05/12/24 11:43 2.5 MG Ipratropium [place] 0.5 mg Q6HWA [facility] 05/12/24 12:00 05/12/24 11:42 0.5 MG objective GENERAL: Awake, alert, oriented. LUNGS: Diminished breath sounds. CARDIOVASCULAR: Heart sounds are good. ABDOMEN: Soft. laboratory and microbiology Laboratory Tests 05/12/24 06:09 Test 05/12/24 06:09 Range/Units Serum Glucose 164 H 74-106 mg/dL Problem List Acute decompensated heart failure, recently diagnosed. Accelerated hypertension. Acute on chronic respiratory failure with hypoxemia. Elevated troponin likely secondary to above. JUNIOR on CKD. Possible pneumonia. Tobacco and marijuana use. Obesity. Pulmonary HTN. Assessment/Plan Continued all current supportive medical care. Morphine and [place] for pain management. Aspirin, Lipitor. Coreg, Lisinopril. IV antibiotics as ordered. DVT prophylactics. Additional plan as per the hospital course. Dietary Evaluation Review Comments: 1) Refer Occupational Therapy Instructor on [place] 2) Continue current plan of care Expected Outcomes/Goals: lab values to improve fu 3-5 days Plan discussed with: Patient DANIEL ROBBINS MD May 12, 2024 13:32
[2024-05-13] VITALS (18 sets, daily range): BP systolic 131–149; BP diastolic 85–98; PULSE 70–88; RESP 16–92; TEMP 97.4–98.2; O2SAT 92–100
[2024-05-13 09:56] LABS: Basophils # (auto) 0 10 ^3/uL (0-0.2); Basophils % (auto) 0.3 % (0.0-2.0); Eosinophils # (auto) 0 10 ^3/uL (0-0.8); Hematocrit 33.8 % (41.0-53.0); Hemoglobin 11.2 g/dL (13.5-17.5); Lymphocytes # (auto) 0.8 10 ^3/uL (0.4-5.4); Lymphocytes % (auto) 6.1 % (10.0-50.0); Mean Corpuscular Hemoglobin 28.2 pg (28.0-32.0); Mean Corpuscular Hgb Conc. 33.1 g/dL (32.0-36.0); Mean Corpuscular Volume 85.3 fL (80.0-100.0); Monocytes # (auto) 0.5 10 ^3/uL (0-1.3); Monocytes % (auto) 4.1 % (0.0-12.0); Neutrophils # (auto) 11.4 10 ^3/uL (1.6-8.6); Neutrophils % (auto) 89.5 % (37.0-80.0); Platelet Count (auto) 344 10^3/uL (140-450); Red Blood Cells 3.96 10^6/uL (4.5-5.90); Red Cell Distribution Width 17.6 % (11.8-14.3); White Blood Cell 12.8 10^3/uL (4.4-10.8)
[2024-05-13 10:25] LABS: Albumin 3.9 g/dL (3.2-4.8); Alkaline Phosphatase 49 U/L (46-116); Anion Gap 4 (5-15); Aspartate Aminotransferase 18 U/L (13-40); BUN/Creatinine Ratio 24.2 (10.0-20.0); Bilirubin, Total 0.5 mg/dL (0.2-1.0); Calcium 9.5 mg/dL (8.7-10.4); Carbon Dioxide 29 mmol/L (20-31); Chloride 104 mmol/L (98-107); Potassium 4.4 mmol/L (3.5-5.1); Sodium 137 mmol/L (136-145); Total Protein 6.7 g/dL (5.7-8.2)
[2024-05-13 10:32] LABS: Alanine Aminotransferase 55 U/L (7-40); Blood Urea Nitrogen 43 mg/dL (9-23); Glucose 108 mg/dL (74-106)
[2024-05-13] MEDS: FUROSEMIDE 40 MG/4 ML VIAL IV SCH (12:01)
--- NOTE | 2024-05-13 12:23 | DVHPN2 ---
Subjective Update 05/12 05/09 patient presenting after recent admission in another hospital in [facility]. He was treated extensively for pneumonia for 6 days. He was visiting his uncle up in [place] and while driving down and trying to feel gas and gas station he felt sudden chills and had sudden loss of urine and bowel bladder. No loss of consciousness no shakes tongue bite. He has heart failure but appears to be close to euvolemia/mildly hypervolemic. Given his chills he was likely has pneumonia recurrence. We will continue treatment with Lasix and IV antibiotics. 05/10 cardiology evaluated. Echo finding severe MR and severe PH RVSP 68 mm Hg, LVEF 40%, global LV hypokinesis, dilated LV. Cardiology suggests patient needs mitral valve clip which can be done outpatient. Patient appears to be close to euvolemia, creatinine increasing with further diuresis. We will hold off further diuresis and continue IV antibiotics. Mildly dilated RV, no tachycardia, PE lower suspicion. Likely pneumonia for now we will continue IV antibiotics. Maintain oxygen more than 90%. 05/11 patient still for breath Oxymizer 8 L. using BiPAP at night as instructed. Compliant with therapies. Diffuse wheezing. Patient was dizzy yesterday as well. Avoiding further diuresis as creatinine is rising with no diuresis. We will start steroids treat as pneumonia causing COPD exacerbation. Arlinem recommend MV clip outpatient. 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 Still short of breath. Still requiring oxygen Oxymizer. Patient creatinine rises every time we try Lasix. But continues to appear euvolemic with pedal edema in faint rales but mostly wheezing. Patient's edema is likely going to be chronic unresolved we will due to severe PH. Patient was outpatient MV clip. Patient wheezing coughing, we will treat as possible COPD exacerbation due to pneumonia. Goal is to continue titrating patient down to home oxygen 4-5 L and improve mobility. Continue IV antibiotics, continue IV steroids b.i.d. Solu-Medrol 20 mg, continue p.o. Lasix 40 mg daily, continue med nebs q.6h, we will consider PT. Reviewed: H&P Changes from previous H/P or p: No Changes General: Per HPI Objective Vitals Vital Signs Date Time Temp Pulse Resp B/P (MAP) Pulse Ox O2 Delivery O2 Flow Rate FiO2 05/13/24 12:01 143/92 05/13/24 10:29 81 19 05/13/24 10:20 100 Oxymizer 5 N/A 05/13/24 09:30 97.8 97.8 Intake/Output Intake and Output 05/13/24 07:00 Intake Total 2570 ml Output Total 2200 ml Balance 370 ml Intake Oral 2420 ml IV Total 150 ml Output Urine Total 2200 ml Exam GEN: Mild distress, he was on BiPAP. HEENT: NC/AT; MMM. CV: RRR, no m/r/g. LUNGS: Expiratory wheezing bilaterally diffuse. Otherwise distant breath sounds. ABD: Soft, NT/ND, NBS, no masses or organomegaly. EXT: skin Warm, well perfused. no rashes. No clubbing, cyanosis, or edema. NEURO: Ambulating with no limitations. No focal deficits. Medications Current Medications Medications Dose Ordered Sig/Inga Route Start Time Stop Time Status Last Admin Dose Admin Carvedilol 6.25 mg Q12HR PO 05/08/24 22:00 05/13/24 09:57 6.25 MG Lisinopril 10 mg DAILY PO 05/09/24 10:00 05/13/24 09:58 10 MG Hydralazine HCl 10 mg Q6HP PRN IV 05/08/24 18:45 05/10/24 08:22 10 MG Aspirin 162 mg DAILY PO 05/09/24 10:00 05/13/24 09:56 162 MG Atorvastatin Calcium 10 mg HS PO 05/08/24 22:00 05/12/24 21:38 10 MG Albuterol 2.5 mg Q6HPRN PRN NEB 05/08/24 18:45 05/13/24 04:24 2.5 MG Ondansetron HCl 4 mg Q4HP PRN IV 05/08/24 18:45 05/11/24 05:48 4 MG Enoxaparin Sodium 40 mg DAILY SC 05/09/24 10:00 05/13/24 09:58 40 MG Acetaminophen 650 mg Q6HP PRN PO 05/08/24 18:45 Nitroglycerin 0.4 mg Q5MINP PRN SL 05/08/24 18:45 Morphine Sulfate 2 mg Q30M PRN IV 05/08/24 18:45 05/12/24 16:09 2 MG Cefepime HCl 50 ml @ 12.5 mls/hr Q12HR IV 05/09/24 22:00 05/13/24 09:56 12.5 MLS/HR Doxycycline Hyclate 100 ml @ 50 mls/hr Q12H IV 05/09/24 15:15 05/13/24 02:59 50 MLS/HR Acetaminophen/ Hydrocodone Bitart 1 tab Q6HP PRN PO 05/09/24 16:15 05/13/24 02:07 1 TAB Morphine Sulfate 2 mg Q6HPRN PRN IV 05/09/24 16:15 05/13/24 09:59 2 MG Methylprednisolone Sodium Succinate 20 mg BID IV 05/11/24 22:00 05/13/24 09:56 20 MG Albuterol 2.5 mg Q6HWA [facility] 05/12/24 12:00 05/13/24 06:49 2.5 MG Ipratropium [place] 0.5 mg Q6HWA [facility] 05/12/24 12:00 05/13/24 06:49 0.5 MG Lactulose 10 ml BID PO 05/12/24 22:00 05/13/24 09:57 10 ML Docusate Sodium 100 mg BID PO 05/12/24 22:00 05/13/24 09:57 100 MG Furosemide 40 mg DAILY IV 05/13/24 10:00 05/13/24 12:01 40 MG Laboratory Results Laboratory Tests 05/13/24 09:42 Chemistry Test 05/13/24 09:42 Albumin 3.9 g/dL (3.2-4.8) Calcium Level 9.5 mg/dL (8.7-10.4) Total Protein 6.7 g/dL (5.7-8.2) LFT Test 05/13/24 09:42 Alanine Aminotransferase (ALT) 55 U/L (7-40) H Alkaline Phosphatase 49 U/L (46-116) Aspartate Amino Transferase (AST) 18 U/L (13-40) Total Bilirubin 0.5 mg/dL (0.2-1.0) Urinalysis Test 05/08/24 18:22 Urine Color Light-yellow (Yellow) Urine Clarity Clear (Clear) Urine pH 6.5 (5.0-9.0) Urine Specific [place] 1.008 (1.001-1.035) Urine Protein 2+ (Negative) H Urine Ketones Negative (Negative) Urine Blood Negative /uL (Negative) Urine Nitrite Negative (Negative) Urine Bilirubin Negative (Negative) Urine Urobilinogen Normal mg/dL (Negative) Urine Leukocyte Esterase Negative /uL (Negative) Urine RBC 1 /hpf (0 - 3) Urine Microscopic WBC < 1 /HPF (0-3) Urine Squamous Epithelial Cells None seen /hpf (<5) Urine Bacteria None seen /hpf (None Seen) Urine Glucose Normal mg/dL (Normal) Microbiology Microbiology Date/Time Source Procedure Growth Status 05/11/24 10:40 Blood Blood Culture - Preliminary NO GROWTH AFTER 48 HOURS OF INCUBATION. Resulted 05/09/24 03:55 Nose MRSA Screen - Final Complete Assessment/Plan Assessment/Plan 05/13 - cr stable. wbc rising due to pdn. decreaseing o2 reqr. patient feeling improved. no rales, LE swelling worsening. continue iv abx. give 1x iv lasix (instaed of po) today. continue steroids. most ssx likely due to MR and PH but will optimize HF copd to allow transition outpatient to primary import/export specialist in [facility]. likely need 2x more days, expecting dc friday so he can f/u with primary on friday. diagnosis: Acute on chronic hypoxic respiratory failure due to below (chronic home oxygen 2 L) Acute COPD exacerbation, with pneumonitis Acute complicated pneumonia , Gram-negative Gram-positive possible Acute on chronic Diastolic and systolic, heart failure exacerbation Severe pulmonary hypertension Severe mitral regurg Elevated troponin likely secondary to above JUNIOR on CKD Accelerated hypertension Tobacco and marijuana use Obesity plan: - continue treatment with Lasix and IV antibiotics (cefepime/doxycycline). - start steroids Solu-Medrol IV 20 qday w mednebs q6hwa - echocardiogram to evaluate cardiac function - Stops diuresis closely monitor kidney function, creatinine rising - avoid GIOVANY and arbs given worsening kidney function - Continue to monitor blood - daily weight, strict intake and output - continue to monitor on telemetry - counseled on smoking and marijuana cessation -MV clip outpatient. Diet cardiac DVT prophylaxis-Lovenox GI prophylaxis tolerating diet Med tele Full code Plan discussed with: Patient My Orders Orders - CARLOS HARTLEY MD Procedure Category Date Status Time Lactulose Oral PHA 05/12/24 In Process 22:00 Docusate Sodium PHA 05/12/24 In Process Capsule (Colace 22:00 Furosemide Injection PHA 05/13/24 In Process (Lasix Injection) 10:00 Date of Service: May 13, 2024 Billing Provider: CARLOS HARTLEY MD Common Visit Codes: [id number] INP/OBS CARE(HIGH) CARLOS HARTLEY MD May 13, 2024 12:23
--- NOTE | 2024-05-13 23:51 | DVHPN2 ---
Progress Note - Dictate Date Seen: May 13, 2024 Medical Necessity Reason Pt with a Central, PICC or Fol: No Subjective Patient was seen and evaluated in follow up. Patient is complaining of SOB, remains on Oxymizer at 5 L. Patient receiving antibiotics and steroids. 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 Telemetry reviewed. vital signs Vital Sign Date Time Temp Pulse Resp B/P (MAP) Pulse Ox O2 Delivery O2 Flow Rate FiO2 05/13/24 12:28 86 18 99 05/13/24 12:20 Oxymizer 5.0 05/13/24 12:20 30 30 05/13/24 12:01 143/92 05/13/24 09:30 97.8 97.8 Total Intake and Output 05/12/24 05/12/24 05/13/24 15:00 23:00 07:00 Intake Total 170 ml 800 ml 1600 ml Output Total 700 ml 1500 ml Balance 170 ml 100 ml 100 ml medications Current Medications Medications Dose Ordered Sig/Inga Route Start Time Stop Time Status Last Admin Dose Admin Carvedilol 6.25 mg Q12HR PO 05/08/24 22:00 05/13/24 09:57 6.25 MG Lisinopril 10 mg DAILY PO 05/09/24 10:00 05/13/24 09:58 10 MG Hydralazine HCl 10 mg Q6HP PRN IV 05/08/24 18:45 05/10/24 08:22 10 MG Aspirin 162 mg DAILY PO 05/09/24 10:00 05/13/24 09:56 162 MG Atorvastatin Calcium 10 mg HS PO 05/08/24 22:00 05/12/24 21:38 10 MG Albuterol 2.5 mg Q6HPRN PRN NEB 05/08/24 18:45 05/13/24 04:24 2.5 MG Ondansetron HCl 4 mg Q4HP PRN IV 05/08/24 18:45 05/11/24 05:48 4 MG Enoxaparin Sodium 40 mg DAILY SC 05/09/24 10:00 05/13/24 09:58 40 MG Acetaminophen 650 mg Q6HP PRN PO 05/08/24 18:45 Nitroglycerin 0.4 mg Q5MINP PRN SL 05/08/24 18:45 Morphine Sulfate 2 mg Q30M PRN IV 05/08/24 18:45 05/12/24 16:09 2 MG Cefepime HCl 50 ml @ 12.5 mls/hr Q12HR IV 05/09/24 22:00 05/13/24 09:56 12.5 MLS/HR Doxycycline Hyclate 100 ml @ 50 mls/hr Q12H IV 05/09/24 15:15 05/13/24 02:59 50 MLS/HR Acetaminophen/ Hydrocodone Bitart 1 tab Q6HP PRN PO 05/09/24 16:15 05/13/24 02:07 1 TAB Morphine Sulfate 2 mg Q6HPRN PRN IV 05/09/24 16:15 05/13/24 09:59 2 MG Albuterol 2.5 mg Q6HWA [facility] 05/12/24 12:00 05/13/24 12:20 2.5 MG Ipratropium [place] 0.5 mg Q6HWA [facility] 05/12/24 12:00 05/13/24 12:20 0.5 MG Lactulose 10 ml BID PO 05/12/24 22:00 05/13/24 09:57 10 ML Docusate Sodium 100 mg BID PO 05/12/24 22:00 05/13/24 09:57 100 MG Furosemide 40 mg DAILY IV 05/13/24 10:00 05/13/24 12:01 40 MG Methylprednisolone Sodium Succinate 20 mg DAILY IV 05/14/24 10:00 objective GENERAL: Awake, alert, oriented. LUNGS: Diminished breath sounds. CARDIOVASCULAR: Heart sounds are good. ABDOMEN: Soft. laboratory and microbiology Laboratory Tests 05/13/24 09:42 Test 05/13/24 09:42 Range/Units Serum Glucose 108 H 74-106 mg/dL Problem List Acute decompensated heart failure, recently diagnosed. Accelerated hypertension. Acute on chronic respiratory failure with hypoxemia. Elevated troponin likely secondary to above. JUNIOR on CKD. Possible pneumonia. Tobacco and marijuana use. Obesity. Pulmonary HTN. Assessment/Plan Continued all current supportive medical care. Morphine and [place] for pain management. Aspirin, Lipitor. Coreg, Lisinopril. IV antibiotics as ordered. DVT prophylactics. Additional plan as per the hospital course. 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
[2024-05-14] VITALS (18 sets, daily range): BP systolic 124–153; BP diastolic 87–102; PULSE 60–105; RESP 16–19; TEMP 97.9–98.5; O2SAT 95–100
[2024-05-14 06:47] LABS: Basophils # (auto) 0.1 10 ^3/uL (0-0.2); Basophils % (auto) 0.5 % (0.0-2.0); Eosinophils # (auto) 0.2 10 ^3/uL (0-0.8); Eosinophils % (auto) 1.2 % (0.0-7.0); Hematocrit 33.2 % (41.0-53.0); Hemoglobin 11.4 g/dL (13.5-17.5); Lymphocytes # (auto) 1.5 10 ^3/uL (0.4-5.4); Lymphocytes % (auto) 12.2 % (10.0-50.0); Mean Corpuscular Hemoglobin 29.1 pg (28.0-32.0); Mean Corpuscular Hgb Conc. 34.2 g/dL (32.0-36.0); Mean Corpuscular Volume 85.1 fL (80.0-100.0); Monocytes # (auto) 0.8 10 ^3/uL (0-1.3); Monocytes % (auto) 6.7 % (0.0-12.0); Neutrophils # (auto) 9.8 10 ^3/uL (1.6-8.6); Neutrophils % (auto) 79.4 % (37.0-80.0); Nucleated Red Blood Cells % 0.2 %; Platelet Count (auto) 364 10^3/uL (140-450); White Blood Cell 12.3 10^3/uL (4.4-10.8)
[2024-05-14 06:53] LABS: Alkaline Phosphatase 53 U/L (46-116); Anion Gap 7 (5-15); BUN/Creatinine Ratio 23.1 (10.0-20.0); Calcium 9.4 mg/dL (8.7-10.4); Carbon Dioxide 28 mmol/L (20-31); Chloride 102 mmol/L (98-107); Glucose 87 mg/dL (74-106); Potassium 4.4 mmol/L (3.5-5.1); Sodium 137 mmol/L (136-145); Total Protein 6.7 g/dL (5.7-8.2)
[2024-05-14 06:54] LABS: Albumin 3.9 g/dL (3.2-4.8); Aspartate Aminotransferase 22 U/L (13-40)
[2024-05-14 06:55] LABS: Alanine Aminotransferase 58 U/L (7-40); Bilirubin, Total 0.5 mg/dL (0.2-1.0); Blood Urea Nitrogen 43 mg/dL (9-23)
[2024-05-14] MEDS: methylPREDNISolone SOD SUCC 40 MG/ML VL IV SCH (08:44)
--- NOTE | 2024-05-14 17:55 | DVHPN2 ---
Reviewed: H&P General: Per HPI Objective Vitals Vital Signs Date Time Temp Pulse Resp B/P (MAP) Pulse Ox O2 Delivery O2 Flow Rate FiO2 05/14/24 16:40 97.9 92 19 153/87 (109) 96 97.9 05/14/24 12:02 Oxymizer 5 N/A Intake/Output Intake and Output 05/14/24 07:00 Intake Total 1900 ml Output Total 1100 ml Balance 800 ml Intake Oral 950 ml IV Total 150 ml Tube Feeding 800 ml Output Urine Total 1100 ml # Bowel Movements 1 Medications Current Medications Medications Dose Ordered Sig/Inga Route Start Time Stop Time Status Last Admin Dose Admin Carvedilol 6.25 mg Q12HR PO 05/08/24 22:00 05/14/24 08:43 6.25 MG Lisinopril 10 mg DAILY PO 05/09/24 10:00 05/14/24 08:44 10 MG Hydralazine HCl 10 mg Q6HP PRN IV 05/08/24 18:45 05/14/24 14:39 10 MG Aspirin 162 mg DAILY PO 05/09/24 10:00 05/14/24 08:45 162 MG Atorvastatin Calcium 10 mg HS PO 05/08/24 22:00 05/13/24 21:04 10 MG Albuterol 2.5 mg Q6HPRN PRN NEB 05/08/24 18:45 05/13/24 04:24 2.5 MG Ondansetron HCl 4 mg Q4HP PRN IV 05/08/24 18:45 05/11/24 05:48 4 MG Enoxaparin Sodium 40 mg DAILY SC 05/09/24 10:00 05/14/24 08:46 40 MG Acetaminophen 650 mg Q6HP PRN PO 05/08/24 18:45 Nitroglycerin 0.4 mg Q5MINP PRN SL 05/08/24 18:45 Morphine Sulfate 2 mg Q30M PRN IV 05/08/24 18:45 05/12/24 16:09 2 MG Cefepime HCl 50 ml @ 12.5 mls/hr Q12HR IV 05/09/24 22:00 05/14/24 09:04 12.5 MLS/HR Doxycycline Hyclate 100 ml @ 50 mls/hr Q12H IV 05/09/24 15:15 05/14/24 14:39 50 MLS/HR Acetaminophen/ Hydrocodone Bitart 1 tab Q6HP PRN PO 05/09/24 16:15 05/14/24 16:31 1 TAB Morphine Sulfate 2 mg Q6HPRN PRN IV 05/09/24 16:15 05/14/24 11:54 2 MG Albuterol 2.5 mg Q6HWA [facility] 05/12/24 12:00 05/14/24 12:02 2.5 MG Ipratropium [place] 0.5 mg Q6HWA [facility] 05/12/24 12:00 05/14/24 12:02 0.5 MG Lactulose 10 ml BID PO 05/12/24 22:00 05/14/24 08:45 10 ML Docusate Sodium 100 mg BID PO 05/12/24 22:00 05/14/24 08:45 100 MG Furosemide 40 mg DAILY IV 05/13/24 10:00 05/14/24 08:44 40 MG Methylprednisolone Sodium Succinate 20 mg DAILY IV 05/14/24 10:00 05/14/24 08:44 20 MG Laboratory Results Laboratory Tests 05/14/24 05:54 Chemistry Test 05/14/24 05:54 Albumin 3.9 g/dL (3.2-4.8) Calcium Level 9.4 mg/dL (8.7-10.4) Total Protein 6.7 g/dL (5.7-8.2) LFT Test 05/14/24 05:54 Alanine Aminotransferase (ALT) 58 U/L (7-40) H Alkaline Phosphatase 53 U/L (46-116) Aspartate Amino Transferase (AST) 22 U/L (13-40) Total Bilirubin 0.5 mg/dL (0.2-1.0) Urinalysis Test 05/08/24 18:22 Urine Color Light-yellow (Yellow) Urine Clarity Clear (Clear) Urine pH 6.5 (5.0-9.0) Urine Specific [place] 1.008 (1.001-1.035) Urine Protein 2+ (Negative) H Urine Ketones Negative (Negative) Urine Blood Negative /uL (Negative) Urine Nitrite Negative (Negative) Urine Bilirubin Negative (Negative) Urine Urobilinogen Normal mg/dL (Negative) Urine Leukocyte Esterase Negative /uL (Negative) Urine RBC 1 /hpf (0 - 3) Urine Microscopic WBC < 1 /HPF (0-3) Urine Squamous Epithelial Cells None seen /hpf (<5) Urine Bacteria None seen /hpf (None Seen) Urine Glucose Normal mg/dL (Normal) Microbiology Microbiology Date/Time Source Procedure Growth Status 05/11/24 10:40 Blood Blood Culture - Preliminary NO GROWTH AFTER 72 HOURS OF INCUBATION. Resulted 05/09/24 03:55 Nose MRSA Screen - Final Complete JENNA YARBROUGH MD May 14, 2024 17:55
--- NOTE | 2024-05-14 18:03 | DVHPN2 ---
Subjective Patient was seen and evaluated by me currently on 5 L of oxygen. Patient denies any chest pain or wheezes. Reviewed: H&P Changes from previous H/P or p: No Changes General: Per HPI Objective Vitals Vital Signs Date Time Temp Pulse Resp B/P (MAP) Pulse Ox O2 Delivery O2 Flow Rate FiO2 05/14/24 16:40 97.9 92 19 153/87 (109) 96 97.9 05/14/24 12:02 Oxymizer 5 N/A Intake/Output Intake and Output 05/14/24 07:00 Intake Total 1900 ml Output Total 1100 ml Balance 800 ml Intake Oral 950 ml IV Total 150 ml Tube Feeding 800 ml Output Urine Total 1100 ml # Bowel Movements 1 Exam HEENT pupils are reactive Neck is supple CV is S1-S2 regular rate and rhythm Respiratory diminished breath sounds bilateral lung bases GI positive bowel sound Extremity no edema 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 Medications Current Medications Medications Dose Ordered Sig/Inga Route Start Time Stop Time Status Last Admin Dose Admin Carvedilol 6.25 mg Q12HR PO 05/08/24 22:00 05/14/24 08:43 6.25 MG Lisinopril 10 mg DAILY PO 05/09/24 10:00 05/14/24 08:44 10 MG Hydralazine HCl 10 mg Q6HP PRN IV 05/08/24 18:45 05/14/24 14:39 10 MG Aspirin 162 mg DAILY PO 05/09/24 10:00 05/14/24 08:45 162 MG Atorvastatin Calcium 10 mg HS PO 05/08/24 22:00 05/13/24 21:04 10 MG Albuterol 2.5 mg Q6HPRN PRN NEB 05/08/24 18:45 05/13/24 04:24 2.5 MG Ondansetron HCl 4 mg Q4HP PRN IV 05/08/24 18:45 05/11/24 05:48 4 MG Enoxaparin Sodium 40 mg DAILY SC 05/09/24 10:00 05/14/24 08:46 40 MG Acetaminophen 650 mg Q6HP PRN PO 05/08/24 18:45 Nitroglycerin 0.4 mg Q5MINP PRN SL 05/08/24 18:45 Morphine Sulfate 2 mg Q30M PRN IV 05/08/24 18:45 05/12/24 16:09 2 MG Cefepime HCl 50 ml @ 12.5 mls/hr Q12HR IV 05/09/24 22:00 05/14/24 09:04 12.5 MLS/HR Doxycycline Hyclate 100 ml @ 50 mls/hr Q12H IV 05/09/24 15:15 05/14/24 14:39 50 MLS/HR Acetaminophen/ Hydrocodone Bitart 1 tab Q6HP PRN PO 05/09/24 16:15 05/14/24 16:31 1 TAB Morphine Sulfate 2 mg Q6HPRN PRN IV 05/09/24 16:15 05/14/24 11:54 2 MG Albuterol 2.5 mg Q6HWA [facility] 05/12/24 12:00 05/14/24 12:02 2.5 MG Ipratropium [place] 0.5 mg Q6HWA [facility] 05/12/24 12:00 05/14/24 12:02 0.5 MG Lactulose 10 ml BID PO 05/12/24 22:00 05/14/24 08:45 10 ML Docusate Sodium 100 mg BID PO 05/12/24 22:00 05/14/24 08:45 100 MG Furosemide 40 mg DAILY IV 05/13/24 10:00 05/14/24 08:44 40 MG Methylprednisolone Sodium Succinate 20 mg DAILY IV 05/14/24 10:00 05/14/24 08:44 20 MG Laboratory Results Laboratory Tests 05/14/24 05:54 Chemistry Test 05/14/24 05:54 Albumin 3.9 g/dL (3.2-4.8) Calcium Level 9.4 mg/dL (8.7-10.4) Total Protein 6.7 g/dL (5.7-8.2) LFT Test 05/14/24 05:54 Alanine Aminotransferase (ALT) 58 U/L (7-40) H Alkaline Phosphatase 53 U/L (46-116) Aspartate Amino Transferase (AST) 22 U/L (13-40) Total Bilirubin 0.5 mg/dL (0.2-1.0) Urinalysis Test 05/08/24 18:22 Urine Color Light-yellow (Yellow) Urine Clarity Clear (Clear) Urine pH 6.5 (5.0-9.0) Urine Specific [place] 1.008 (1.001-1.035) Urine Protein 2+ (Negative) H Urine Ketones Negative (Negative) Urine Blood Negative /uL (Negative) Urine Nitrite Negative (Negative) Urine Bilirubin Negative (Negative) Urine Urobilinogen Normal mg/dL (Negative) Urine Leukocyte Esterase Negative /uL (Negative) Urine RBC 1 /hpf (0 - 3) Urine Microscopic WBC < 1 /HPF (0-3) Urine Squamous Epithelial Cells None seen /hpf (<5) Urine Bacteria None seen /hpf (None Seen) Urine Glucose Normal mg/dL (Normal) Microbiology Microbiology Date/Time Source Procedure Growth Status 05/11/24 10:40 Blood Blood Culture - Preliminary NO GROWTH AFTER 72 HOURS OF INCUBATION. Resulted 05/09/24 03:55 Nose MRSA Screen - Final Complete Assessment/Plan Assessment/Plan 54-year-old male with a known history of COPD, congestive heart failure with systolic and diastolic dysfunction , severe pulmonary hypertension, severe mitral regurgitation initially presented to the hospital with the increasing shortness a breath and dyspnea on exertion found to have 1. Acute on chronic hypoxic respiratory failure secondary to underlying pneumonia as well as acute CHF exacerbation 2. Acute CHF exacerbation with systolic and diastolic dysfunction 3. Severe mitral regurgitation 4. Severe pulmonary hypertension 5. Community-acquired pneumonia 6. COPD 7. Mildly elevated troponin suspect demand ischemia 8. AKA with underlying CKD 9. Accelerated hypertension 10.tobacco and marijuana use 11. Morbid obesity class II -IBD diuretics, O2 supplementation -physical therapy evaluation and treatment -continue antibiotics -discharge plan in next 24/48 hours. Plan discussed with: Patient Date of Service: May 14, 2024 Billing Provider: JENNA YARBROUGH MD Common Visit Codes: [id number] INP/OBS CARE(MOD) JENNA YARBROUGH MD May 14, 2024 18:03
--- NOTE | 2024-05-14 23:32 | DVHPN2 ---
Progress Note - Dictate Date Seen: May 14, 2024 Medical Necessity Reason Pt with a Central, PICC or Fol: No Subjective Patient was seen and evaluated in follow up. Patient remains on Oxymizer at 5 L due to SOB. Patient reports not feeling improved or worse. 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 Telemetry reviewed. vital signs Vital Sign Date Time Temp Pulse Resp B/P (MAP) Pulse Ox O2 Delivery O2 Flow Rate FiO2 05/14/24 08:44 144/104 05/14/24 08:43 63 05/14/24 07:31 18 100 05/14/24 07:19 Oxymizer 5.0 05/14/24 07:19 N/A 05/14/24 05:00 98.5 98.5 Total Intake and Output 05/13/24 05/13/24 05/14/24 15:00 23:00 07:00 Intake Total 150 ml 1750 ml Output Total 1100 ml Balance -950 ml 1750 ml medications Current Medications Medications Dose Ordered Sig/Inga Route Start Time Stop Time Status Last Admin Dose Admin Carvedilol 6.25 mg Q12HR PO 05/08/24 22:00 05/14/24 08:43 6.25 MG Lisinopril 10 mg DAILY PO 05/09/24 10:00 05/14/24 08:44 10 MG Hydralazine HCl 10 mg Q6HP PRN IV 05/08/24 18:45 05/10/24 08:22 10 MG Aspirin 162 mg DAILY PO 05/09/24 10:00 05/14/24 08:45 162 MG Atorvastatin Calcium 10 mg HS PO 05/08/24 22:00 05/13/24 21:04 10 MG Albuterol 2.5 mg Q6HPRN PRN NEB 05/08/24 18:45 05/13/24 04:24 2.5 MG Ondansetron HCl 4 mg Q4HP PRN IV 05/08/24 18:45 05/11/24 05:48 4 MG Enoxaparin Sodium 40 mg DAILY SC 05/09/24 10:00 05/14/24 08:46 40 MG Acetaminophen 650 mg Q6HP PRN PO 05/08/24 18:45 Nitroglycerin 0.4 mg Q5MINP PRN SL 05/08/24 18:45 Morphine Sulfate 2 mg Q30M PRN IV 05/08/24 18:45 05/12/24 16:09 2 MG Cefepime HCl 50 ml @ 12.5 mls/hr Q12HR IV 05/09/24 22:00 05/14/24 09:04 12.5 MLS/HR Doxycycline Hyclate 100 ml @ 50 mls/hr Q12H IV 05/09/24 15:15 05/14/24 03:44 50 MLS/HR Acetaminophen/ Hydrocodone Bitart 1 tab Q6HP PRN PO 05/09/24 16:15 05/14/24 09:04 1 TAB Morphine Sulfate 2 mg Q6HPRN PRN IV 05/09/24 16:15 05/14/24 05:42 2 MG Albuterol 2.5 mg Q6HWA [facility] 05/12/24 12:00 05/14/24 07:19 2.5 MG Ipratropium [place] 0.5 mg Q6HWA [facility] 05/12/24 12:00 05/14/24 07:20 0.5 MG Lactulose 10 ml BID PO 05/12/24 22:00 05/14/24 08:45 10 ML Docusate Sodium 100 mg BID PO 05/12/24 22:00 05/14/24 08:45 100 MG Furosemide 40 mg DAILY IV 05/13/24 10:00 05/14/24 08:44 40 MG Methylprednisolone Sodium Succinate 20 mg DAILY IV 05/14/24 10:00 05/14/24 08:44 20 MG objective GENERAL: Awake, alert, oriented. LUNGS: Diminished breath sounds. CARDIOVASCULAR: Heart sounds are good. ABDOMEN: Soft. laboratory and microbiology Laboratory Tests 05/14/24 05:54 Test 05/14/24 05:54 Range/Units Serum Glucose 87 74-106 mg/dL Problem List Acute decompensated heart failure, recently diagnosed. Accelerated hypertension. Acute on chronic respiratory failure with hypoxemia. Elevated troponin likely secondary to above. JUNIOR on CKD. Possible pneumonia. Tobacco and marijuana use. Obesity. Pulmonary HTN. Assessment/Plan Continued all current supportive medical care. Morphine and [place] for pain management. Aspirin, Lipitor. Coreg, Lisinopril. IV antibiotics as ordered. DVT prophylactics. Additional plan as per the hospital course. Dietary Evaluation Review Comments: 1) Refer Sheet [employer] Smith on DC 2) Continue current plan of care Expected Outcomes/Goals: lab values to improve fu 3-5 days Plan discussed with: Patient DANIEL ROBBINS MD May 14, 2024 11:41
[2024-05-15] VITALS (18 sets, daily range): BP systolic 138–162; BP diastolic 95–102; PULSE 81–104; RESP 18–20; TEMP 97.5–98.7; O2SAT 92–100
--- NOTE | 2024-05-15 15:43 | DVHPN2 ---
Progress Note - Dictate Date Seen: May 15, 2024 Medical Necessity Reason Pt with a Central, PICC or Fol: No Subjective Patient was seen and evaluated in follow up. Patient was transitioned to 5 LPM [place]. Patient reports feeling mild improvement in SOB. Denies cough or congestion. Telemetry reviewed. vital signs Vital Sign Date Time Temp Pulse Resp B/P (MAP) Pulse Ox O2 Delivery O2 Flow Rate FiO2 05/15/24 10:00 98 Nasal Cannula* 5 40 05/15/24 09:16 94 18 162/102 05/15/24 08:35 97.9 97.9 Total Intake and Output 05/14/24 05/14/24 05/15/24 15:00 23:00 07:00 Intake Total 290 ml 996 ml 250 ml Output Total 1680 ml 580 ml Balance 290 ml -684 ml -330 ml medications Current Medications Medications Dose Ordered Sig/Inga Route Start Time Stop Time Status Last Admin Dose Admin Carvedilol 6.25 mg Q12HR PO 05/08/24 22:00 05/15/24 08:26 6.25 MG Lisinopril 10 mg DAILY PO 05/09/24 10:00 05/15/24 08:27 10 MG Hydralazine HCl 10 mg Q6HP PRN IV 05/08/24 18:45 05/14/24 21:28 10 MG Aspirin 162 mg DAILY PO 05/09/24 10:00 05/15/24 08:28 162 MG Atorvastatin Calcium 10 mg HS PO 05/08/24 22:00 05/14/24 21:43 10 MG Albuterol 2.5 mg Q6HPRN PRN NEB 05/08/24 18:45 05/13/24 04:24 2.5 MG Ondansetron HCl 4 mg Q4HP PRN IV 05/08/24 18:45 05/11/24 05:48 4 MG Enoxaparin Sodium 40 mg DAILY SC 05/09/24 10:00 05/15/24 08:28 40 MG Acetaminophen 650 mg Q6HP PRN PO 05/08/24 18:45 Nitroglycerin 0.4 mg Q5MINP PRN SL 05/08/24 18:45 Morphine Sulfate 2 mg Q30M PRN IV 05/08/24 18:45 05/15/24 05:53 2 MG Cefepime HCl 50 ml @ 12.5 mls/hr Q12HR IV 05/09/24 22:00 05/15/24 08:35 12.5 MLS/HR Doxycycline Hyclate 100 ml @ 50 mls/hr Q12H IV 05/09/24 15:15 05/15/24 06:21 50 MLS/HR Acetaminophen/ Hydrocodone Bitart 1 tab Q6HP PRN PO 05/09/24 16:15 05/15/24 06:22 1 TAB Morphine Sulfate 2 mg Q6HPRN PRN IV 05/09/24 16:15 05/15/24 09:16 2 MG Albuterol 2.5 mg Q6HWA [facility] 05/12/24 12:00 05/15/24 06:59 2.5 MG Ipratropium [place] 0.5 mg Q6HWA [facility] 05/12/24 12:00 05/15/24 06:59 0.5 MG Lactulose 10 ml BID PO 05/12/24 22:00 05/15/24 08:28 10 ML Docusate Sodium 100 mg BID PO 05/12/24 22:00 05/15/24 08:26 100 MG Furosemide 40 mg DAILY IV 05/13/24 10:00 05/14/24 08:44 40 MG Methylprednisolone Sodium Succinate 20 mg DAILY IV 05/14/24 10:00 05/14/24 08:44 20 MG objective GENERAL: Awake, alert, oriented. LUNGS: Diminished breath sounds. CARDIOVASCULAR: Heart sounds are good. ABDOMEN: Soft. laboratory and microbiology Laboratory Tests 05/14/24 05:54 Test 05/14/24 05:54 Range/Units Serum Glucose 87 74-106 mg/dL Problem List Acute decompensated heart failure, recently diagnosed. Accelerated hypertension. Acute on chronic respiratory failure with hypoxemia. Elevated troponin likely secondary to above. JUNIOR on CKD. Possible pneumonia. Tobacco and marijuana use. Obesity. Pulmonary HTN. Assessment/Plan Continued all current supportive medical care. Morphine and [place] for pain management. Aspirin, Lipitor. Coreg, Lisinopril. IV antibiotics as ordered. Diuretics with Lasix. DVT prophylactics. Additional plan as per the hospital course. Dietary Evaluation Review Comments: 1) Refer Oil Mixer on DC 2) Continue current plan of care Expected Outcomes/Goals: lab values to improve fu 3-5 days Plan discussed with: Patient DANIEL ROBBINS MD May 15, 2024 11:31
--- NOTE | 2024-05-15 15:52 | PRN ---
Misceleneous Note Note Note I went To see the patient along with the nurse. Patient is told me that I wanted to send him to the hotel which I never said that. Patient does not happy with my care. fertilizer supervisor Lor has been notified. Patient will be assigned to different physician. JENNA YARBROUGH MD May 15, 2024 15:52
--- NOTE | 2024-05-15 17:56 | DVHPN2 ---
Subjective Patient reports that his breathing has improved. Reviewed: H&P Changes from previous H/P or p: No Changes General: Per HPI Objective Vitals Vital Signs Date Time Temp Pulse Resp B/P (MAP) Pulse Ox O2 Delivery O2 Flow Rate FiO2 05/15/24 16:40 98.2 89 19 138/95 (109) 100 98.2 05/15/24 12:54 Nasal Cannula 5.0 05/15/24 12:54 N/A Intake/Output Intake and Output 05/15/24 07:00 Intake Total 1536 ml Output Total 2260 ml Balance -724 ml Intake Oral 1386 ml IV Total 150 ml Output Urine Total 2260 ml # Bowel Movements 2 General Appearance: Alert, Oriented X3, Cooperative, mild distress HEENT: Atraumatic, PERRLA Lungs: Other (Inspiratory and expiratory wheezing, more so in the right lung) Cardiovascular: Normal S1, Normal S2 Back: Flank Tenderness, Midline Tenderness Musculoskeletal: Normal sensory function, Normal motor function Extremities: No clubbing, No cyanosis, No edema, Normal pulses Neuro: Normal gait, Normal speech Skin: Dry, Intact Psych/Mental Status: Mental status NL, Mood NL Medications Current Medications Medications Dose Ordered Sig/Inga Route Start Time Stop Time Status Last Admin Dose Admin Carvedilol 6.25 mg Q12HR PO 05/08/24 22:00 05/15/24 08:26 6.25 MG Lisinopril 10 mg DAILY PO 05/09/24 10:00 05/15/24 08:27 10 MG Hydralazine HCl 10 mg Q6HP PRN IV 05/08/24 18:45 05/15/24 14:57 10 MG Aspirin 162 mg DAILY PO 05/09/24 10:00 05/15/24 08:28 162 MG Atorvastatin Calcium 10 mg HS PO 05/08/24 22:00 05/14/24 21:43 10 MG Albuterol 2.5 mg Q6HPRN PRN NEB 05/08/24 18:45 05/13/24 04:24 2.5 MG Ondansetron HCl 4 mg Q4HP PRN IV 05/08/24 18:45 05/11/24 05:48 4 MG Enoxaparin Sodium 40 mg DAILY SC 05/09/24 10:00 05/15/24 08:28 40 MG Acetaminophen 650 mg Q6HP PRN PO 05/08/24 18:45 Nitroglycerin 0.4 mg Q5MINP PRN SL 05/08/24 18:45 Morphine Sulfate 2 mg Q30M PRN IV 05/08/24 18:45 05/15/24 05:53 2 MG Cefepime HCl 50 ml @ 12.5 mls/hr Q12HR IV 05/09/24 22:00 05/15/24 08:35 12.5 MLS/HR Doxycycline Hyclate 100 ml @ 50 mls/hr Q12H IV 05/09/24 15:15 05/15/24 14:39 50 MLS/HR Acetaminophen/ Hydrocodone Bitart 1 tab Q6HP PRN PO 05/09/24 16:15 05/15/24 06:22 1 TAB Morphine Sulfate 2 mg Q6HPRN PRN IV 05/09/24 16:15 05/15/24 09:16 2 MG Albuterol 2.5 mg Q6HWA [facility] 05/12/24 12:00 05/15/24 12:54 2.5 MG Ipratropium [place] 0.5 mg Q6HWA [facility] 05/12/24 12:00 05/15/24 12:54 0.5 MG Lactulose 10 ml BID PO 05/12/24 22:00 05/15/24 08:28 10 ML Docusate Sodium 100 mg BID PO 05/12/24 22:00 05/15/24 08:26 100 MG Furosemide 40 mg DAILY IV 05/13/24 10:00 05/14/24 08:44 40 MG Methylprednisolone Sodium Succinate 20 mg DAILY IV 05/14/24 10:00 05/14/24 08:44 20 MG Laboratory Results Laboratory Tests 05/14/24 05:54 Urinalysis Test 05/08/24 18:22 Urine Color Light-yellow (Yellow) Urine Clarity Clear (Clear) Urine pH 6.5 (5.0-9.0) Urine Specific [place] 1.008 (1.001-1.035) Urine Protein 2+ (Negative) H Urine Ketones Negative (Negative) Urine Blood Negative /uL (Negative) Urine Nitrite Negative (Negative) Urine Bilirubin Negative (Negative) Urine Urobilinogen Normal mg/dL (Negative) Urine Leukocyte Esterase Negative /uL (Negative) Urine RBC 1 /hpf (0 - 3) Urine Microscopic WBC < 1 /HPF (0-3) Urine Squamous Epithelial Cells None seen /hpf (<5) Urine Bacteria None seen /hpf (None Seen) Urine Glucose Normal mg/dL (Normal) Microbiology Microbiology Date/Time Source Procedure Growth Status 05/11/24 10:40 Blood Blood Culture - Preliminary NO GROWTH AFTER 72 HOURS OF INCUBATION. Resulted 05/09/24 03:55 Nose MRSA Screen - Final Complete Labs and/or images reviewed: Labs reviewed by me, Image(s) reviewed by me Assessment/Plan Assessment/Plan Impression: -acute on chronic hypoxic respiratory failure -COPD with exacerbation -acute systolic heart failure with ejection fraction 40% -pulmonary hypertension -mitral valve regurgitation -obesity -chronic kidney disease stage IIIb/four Plan: -continue O2 supplementation, weaned to keep saturation greater than 91%. Currently on high-flow bubbler at 5 liters/minute saturating 99 -Cardiology consultation: Recommendations reviewed -continue IV diuresis -continue bronchodilators -add Pulmicort -continue antibiotic therapy -long discussion made with the patient. Plans for discharge tomorrow. All questions answered. Total time spent with patient discussing and formulating plan of care: 35 minutes. This medical document was created using an electronic medical record system with [employer] dictation system. Although this document has been carefully reviewed, there may still be some phonetic and typographical errors. These areas are purely typographical due to imperfections of the software programs, and do not reflect any compromise in the patient's medical care. Plan discussed with: Patient, Other (RN) Date of Service: May 15, 2024 Billing Provider: MADISYN CELIS NP Common Visit Codes: [id number] INP/OBS CARE(HIGH) MADISYN CELIS NP May 15, 2024 17:55
[2024-05-15] MEDS: BUDESONIDE (INHALATION) 0.5 MG/2 ML NEB NEB SCH (21:50)
[2024-05-16] VITALS (10 sets, daily range): BP systolic 128–150; BP diastolic 64–99; PULSE 75–100; RESP 16–18; TEMP 98.5–99.6; O2SAT 91–100
[2024-05-16] MEDS ORDERED: HYDR-4798 PO (11:59)
[2024-05-16] MEDS ORDERED: DOXY1CAP57 PO (11:59)
[2024-05-16] MEDS ORDERED: DOCU-94 PO (11:59)
--- NOTE | 2024-05-16 12:06 | DVHDS2 ---
Discharge Summary Date of Admission May 08, 2024 at 18:38 Date of Discharge: May 16, 2024 Admitting Diagnosis Acute on chronic respiratory failure Labs/Diagnostic Data: Laboratory Results Test 05/14/24 05:54 05/09/24 07:50 05/08/24 20:07 05/08/24 19:35 White Blood Count 12.3 10^3/uL (4.4-10.8) Red Blood Count 3.90 10^6/uL (4.5-5.90) Hemoglobin 11.4 g/dL (13.5-17.5) Hematocrit 33.2 % (41.0-53.0) Mean Corpuscular Volume 85.1 fL (80.0-100.0) Mean Corpuscular Hemoglobin 29.1 pg (28.0-32.0) Mean Corpuscular Hemoglobin Concent 34.2 g/dL (32.0-36.0) Red Cell Distribution Width 18.0 % (11.8-14.3) Platelet Count 364 10^3/uL (140-450) Mean Platelet Volume 7.5 fL (6.9-10.8) Neutrophils (%) (Auto) 79.4 % (37.0-80.0) Lymphocytes (%) (Auto) 12.2 % (10.0-50.0) Monocytes (%) (Auto) 6.7 % (0.0-12.0) Eosinophils (%) (Auto) 1.2 % (0.0-7.0) Basophils (%) (Auto) 0.5 % (0.0-2.0) Neutrophils # (Auto) 9.8 10 ^3/uL (1.6-8.6) Lymphocytes # (Auto) 1.5 10 ^3/uL (0.4-5.4) Monocytes # (Auto) 0.8 10 ^3/uL (0-1.3) Eosinophils # (Auto) 0.2 10 ^3/uL (0-0.8) Basophils # (Auto) 0.1 10 ^3/uL (0-0.2) Nucleated Red Blood Cells 0.2 % Sodium Level 137 mmol/L (136-145) Potassium Level 4.4 mmol/L (3.5-5.1) Chloride Level 102 mmol/L (98-107) Carbon Dioxide Level 28 mmol/L (20-31) Anion Gap 7 (5-15) Blood Urea Nitrogen 43 mg/dL (9-23) Creatinine 1.86 mg/dL (0.700-1.30) Glomerular Filtration Rate Calc 42 mL/min (>90) BUN/Creatinine Ratio 23.1 (10.0-20.0) Serum Glucose 87 mg/dL (74-106) Calcium Level 9.4 mg/dL (8.7-10.4) Total Bilirubin 0.5 mg/dL (0.2-1.0) Aspartate Amino Transferase (AST) 22 U/L (13-40) Alanine Aminotransferase (ALT) 58 U/L (7-40) Alkaline Phosphatase 53 U/L (46-116) Total Protein 6.7 g/dL (5.7-8.2) Albumin 3.9 g/dL (3.2-4.8) B-Type Natriuretic Peptide 871.89 pg/mL (0-100) Thyroxine (T4) 7.0 ug/dL (4.5-12.0) Total Triiodothyronine (TT3) 0.66 ng/mL (0.60-1.81) Hepatitis B Surface Antigen Negative (Negative) Hepatitis C Antibody Negative (Negative) Troponin I High Sensitivity 104 ng/L (</=54) Triglycerides Level 78 mg/dL (< 150) Cholesterol Level 198 mg/dL (< 200) LDL Cholesterol 112 mg/dL (< 100) HDL Cholesterol 55 mg/dL (40-59) Thyroid Stimulating Hormone (TSH) 0.20 uIU/mL (0.55-4.78) Blood Gas Specimen Type Arterial Blood Gas Sample Site Right radial Blood Gas Patient Temperature 37.0 Arterial Blood Date Drawn [id number] Arterial Blood pH 7.413 (7.350-7.450) Arterial Blood Partial Pressure CO2 35.1 mmHg (35.0-48.0) Arterial Blood Partial Pressure O2 380.2 mmHg (83.0-108.0) Arterial Blood HCO3 21.9 mmol/L (21.0-28.0) Arterial Blood Oxygen Saturation 99.9 % (94.0-98.0) Arterial Blood Base Excess -2.1 mmol/L (-2.0-3.0) Arterial Blood Oxyhemoglobin 98.4 % (94.0-98.0) Arterial Blood Carboxyhemoglobin 0.8 % (0.5-1.5) Arterial Blood Methemoglobin 0.7 % (0.0-1.5) Phu Test Modified Blood Gas Total Hemoglobin 12.90 g/dL (13.5-17.5) Blood Gas Set Respiration Rate 12.0 Blood Gas Modality Mask - bipap Blood Gas Spontaneous Rate 15 FiO2 % 100.0 Blood Gas Spontaneous Tidal Volume 614 Blood Gas EPAP 5 Blood Gas IPAP 12 Bl Gas Inspiratory/Expiratory Ratio 1:2 Blood Gas Critical Value Read Back Yes Blood Gas Notified Whom Do amish quinonez Blood Gas Notified Time [id number] Blood Gas Notified By Rt, molly garvin Test 05/08/24 18:22 05/08/24 17:50 05/08/24 17:06 05/08/24 16:56 Urine Color Light-yellow (Yellow) Urine Clarity Clear (Clear) Urine pH 6.5 (5.0-9.0) Urine Specific [place] 1.008 (1.001-1.035) Urine Protein 2+ (Negative) Urine Ketones Negative (Negative) Urine Blood Negative /uL (Negative) Urine Nitrite Negative (Negative) Urine Bilirubin Negative (Negative) Urine Urobilinogen Normal mg/dL (Negative) Urine Leukocyte Esterase Negative /uL (Negative) Urine RBC 1 /hpf (0 - 3) Urine Microscopic WBC < 1 /HPF (0-3) Urine Squamous Epithelial Cells None seen /hpf (<5) Urine Bacteria None seen /hpf (None Seen) Urine Glucose Normal mg/dL (Normal) Urine Opiates Screen Neg (NEGATIVE) Urine Fentanyl Screen Neg (NEGATIVE) Urine Barbiturates Screen Neg (NEGATIVE) Urine Phencyclidine Screen Neg (NEGATIVE) Urine Amphetamines Screen Neg (NEGATIVE) Urine Benzodiazepines Screen Neg (NEGATIVE) Urine Cocaine Screen Neg (NEGATIVE) Urine Cannabinoids Screen Neg (NEGATIVE) Influenza Type A Antigen Negative (Negative) Influenza Type B Antigen Negative (Negative) SARS-CoV-2 Antigen (Rapid) Negative (NEGATIVE) Prothrombin Time 11.4 sec (9.3-11.8) Prothrombin Time INR 1.08 (0.9-1.15) Activated Partial Thromboplast Time 34.2 SEC (24.5-34.5) D-Dimer, Quantitative 0.78 mg/L FEU (0.0-0.49) Magnesium Level 2.0 mg/dL (1.6-2.6) Lactic Acid Level 0.8 mmol/L (0.4-2.0) Test 05/08/24 16:51 POC Glucose 108 mg/dl (70-106) Other Laboratory Tests 05/14/24 05:54 Brief Hx & Hospital Course: History of Present Illness 54-YEAR-OLD MALE WITH A HISTORY OF CONGESTIVE HEART FAILURE PRESENTS FOR EVALUATION OF SHORTNESS FOR BREATH. PATIENT REPORTS CURRENTLY NOT TAKING ANY MEDICATIONS FOR CONGESTIVE HEART FAILURE. HE PRESENTS WITH A TWO DAY HISTORY OF WORSENING SHORTNESS FOR BREATH WITH MILD EXERTION. STATES HAVING A NONPRODUCTIVE COUGH. REPORTS CHEST PRESSURE. NO FEVER OR CHILLS. NO GI SYMPTOMS. Course of hospitalization: Cardiology consultation was obtained. Patient had echocardiogram. Patient with noted pulmonary hypertension as well as mitral valve regurgitation. Recommendations by [employer] consultant include mitral clip which will be followed up as an outpatient. Patient was also treated with empiric antibiotic therapy, bronchodilators, steroids, inhaled corticosteroids. Patient was O2 requirements have been weaned down to 4 L/min. Patient was states his baseline uses between 3-4 L/min. Patient will be continued on antibiotic therapy with doxycycline 100 mg p.o. b.i.d. for additional seven days. Patient was also requesting pain medication until he was able to see his pain management doctor patient will be prescribed [place] 10/325 total of 15 tablets every 8 hours as needed. Patient was instructed to continue all home medications as designated in the medication reconciliation. Patient was agreeable with discharge plan. All questions answered. Physical examination General: Alert and Oriented x3. No acute distress. Well-nourished. Eyes: EOMI. Anicteric. HENT: Moist mucous membranes. Lungs: Clear to auscultation bilaterally. No accessory muscle use. Cardiovascular: Regular rate and rhythm. No murmur. No JVD. Abdomen: Soft, non-tender and non-distended. No palpable masses. Extremities: No edema. Non-tender. Skin: No rashes or lesions. Warm. Neurologic: No focal neurological deficits. CN II-XII grossly intact, but not individually tested. Psychiatric: Cooperative. Appropriate mood and affect. Total time spent with patient discussing and formulating plan of care: 35 minutes. This medical document was created using an electronic medical record system with [employer] dictation system. Although this document has been carefully reviewed, there may still be some phonetic and typographical errors. These areas are purely typographical due to imperfections of the software programs, and do not reflect any compromise in the patient's medical care. Consults/Reason for consult Cardiology: Decompensated heart failure Condition at Discharge: Guarded Final Diagnosis/Problems List Acute on chronic hypoxic respiratory failure Patient was secondary diagnosis: -acute on chronic hypoxic respiratory failure -COPD with exacerbation -acute systolic heart failure with ejection fraction 40% -pulmonary hypertension -mitral valve regurgitation -obesity -chronic kidney disease stage IIIb/four Discharge Disposition: Home Discharge Instruct/Medications Diet: Consistent carbohydrate, Cardiac 2g Na,low cholest Follow Up/Referral: PCP in 1-2 weeks Cardiologists at scheduled appointment tomorrow Medications: Doxycycline 100 mg p.o. b.i.d. Colace 100 mg p.o. b.i.d. for constipation [place] 10/325 q.8 hours as needed for severe pain Continue all previous home medications 36 Discharge Statement: "Patient was advised to return to the ER or call 911 if any headaches, dizziness, shortness of breath, chest pain, abdominal pain, bleeding, fevers, or worsening of medical condition. Patient was counseled about treatment plan, medications, possible side effects, patientverbalized understanding. All questions were answered to the best of my ability. This discharge took greater then 30 minutes in planning, reviewing documentation, counseling the patient, and discussing with other team members." ASSESSMENT ASSESSMENT Assessment Date of Service: May 16, 2024 Billing Provider: MADISYN CELIS NP Common Visit Codes: [id number] DISCH DAY >30min MADISYN CELIS NP May 16, 2024 12:06
--- NOTE | 2024-05-16 13:49 | DVHPN2 ---
Progress Note - Dictate Date Seen: May 16, 2024 Medical Necessity Reason Pt with a Central, PICC or Fol: No Subjective Patient was seen and evaluated in follow up. Patient has no new complaints at this time. Patient denies any cardiac symptoms. Patient is cardiac stable for discharge. Telemetry reviewed. vital signs Vital Sign Date Time Temp Pulse Resp B/P (MAP) Pulse Ox O2 Delivery O2 Flow Rate FiO2 05/16/24 12:37 98.6 89 18 91 05/16/24 11:46 Nasal Cannula 3.0 05/16/24 11:46 32 05/16/24 10:25 145/92 Total Intake and Output 05/15/24 05/15/24 05/16/24 15:00 23:00 07:00 Intake Total 150 ml 980 ml 500 ml Output Total 630 ml 400 ml Balance 150 ml 350 ml 100 ml objective GENERAL: Awake, alert, oriented. LUNGS: Diminished breath sounds. CARDIOVASCULAR: Heart sounds are good. ABDOMEN: Soft. laboratory and microbiology Laboratory Tests 05/14/24 05:54 Test 05/14/24 05:54 Range/Units Serum Glucose 87 74-106 mg/dL Problem List Acute decompensated heart failure, recently diagnosed. Accelerated hypertension. Acute on chronic respiratory failure with hypoxemia. Elevated troponin likely secondary to above. JUNIOR on CKD. Possible pneumonia. Tobacco and marijuana use. Obesity. Pulmonary HTN. Assessment/Plan Continued all current supportive medical care. Morphine and [place] for pain management. Aspirin, Lipitor. Coreg, Lisinopril. IV antibiotics as ordered. Diuretics with Lasix. DVT prophylactics. Additional plan as per the hospital course. Dietary Evaluation Review Comments: 1) Refer Employee Relations Manager on DC 2) Continue current plan of care Expected Outcomes/Goals: lab values to improve fu 3-5 days Plan discussed with: Patient DANIEL ROBBINS MD May 16, 2024 13:23
== END 2024-05-16 12:58 | disposition home or self-care (01) | DRG 133 ==
LOC: EDBD 16:39 → ER 16:44 → OVERFLOW 18:38 → TELE-WESTW 23:43
PROVIDERS: ADMIT Internal Medicine; ATTEND Internal Medicine
PROC: 5A09357 Assistance with Respiratory Ventilation, Less than 24 Consecutive Hours, Continuous Positive Airway Pressure (ICD-10-PCS; principal; 2024-05-08)
PROC: 5A09357 Assistance with Respiratory Ventilation, Less than 24 Consecutive Hours, Continuous Positive Airway Pressure (ICD-10-PCS; 2024-05-09)
PROC: 5A09357 Assistance with Respiratory Ventilation, Less than 24 Consecutive Hours, Continuous Positive Airway Pressure (ICD-10-PCS; 2024-05-10)
PROC: 5A09357 Assistance with Respiratory Ventilation, Less than 24 Consecutive Hours, Continuous Positive Airway Pressure (ICD-10-PCS; 2024-05-11)
PROC: 5A09357 Assistance with Respiratory Ventilation, Less than 24 Consecutive Hours, Continuous Positive Airway Pressure (ICD-10-PCS; 2024-05-12)
PROC: 5A09357 Assistance with Respiratory Ventilation, Less than 24 Consecutive Hours, Continuous Positive Airway Pressure (ICD-10-PCS; 2024-05-13)
PROC: 5A09357 Assistance with Respiratory Ventilation, Less than 24 Consecutive Hours, Continuous Positive Airway Pressure (ICD-10-PCS; 2024-05-14)
PROC: 5A0935A Assistance with Respiratory Ventilation, Less than 24 Consecutive Hours, High Flow/Velocity Cannula (ICD-10-PCS; 2024-05-14)
PROC: 5A0935A Assistance with Respiratory Ventilation, Less than 24 Consecutive Hours, High Flow/Velocity Cannula (ICD-10-PCS; 2024-05-15)
DX: J96.21 Acute and chronic respiratory failure with hypoxia (principal); I50.43 Acute on chronic combined systolic (congestive) and diastolic (congestive) heart failure; I27.20 Pulmonary hypertension, unspecified; J44.1 Chronic obstructive pulmonary disease with (acute) exacerbation; E11.22 Type 2 diabetes mellitus with diabetic chronic kidney disease; I13.0 Hypertensive heart and chronic kidney disease with heart failure and stage 1 through stage 4 chronic kidney disease, or unspecified chronic kidney disease; Z20.822 Contact with and (suspected) exposure to COVID-19; Z68.33 Body mass index [BMI] 33.0-33.9, adult; F17.210 Nicotine dependence, cigarettes, uncomplicated; E66.01 Morbid (severe) obesity due to excess calories; N18.32 Chronic kidney disease, stage 3b; J98.4 Other disorders of lung; I34.0 Nonrheumatic mitral (valve) insufficiency; Z79.899 Other long term (current) drug therapy; Z88.0 Allergy status to penicillin; Z99.81 Dependence on supplemental oxygen; Z79.82 Long term (current) use of aspirin; Z79.51 Long term (current) use of inhaled steroids
CPT/HCPCS: 36415; 36600; 71045; 71250; 80053; 80061; 80307; 81001; 82805; 82962; 83605; 83735; 83880; 84436; 84443; 84480; 84484; 85025; 85379; 85610; 85730; 86803; 87040; 87081; 87340; 87426; 87804; 93005; 93306; 94640; 94660; 96365; 96375; 99291; G0378; J1956; J2405